=== PATIENT | female | born 1975 | race Caucasian/White ===

== ENCOUNTER 2018-11-09 11:45 | Day surgery (SDC) | payer BC ==
[2018-11-06 13:19] LABS: Absolute Lymphocytes (CBC) 2.5 K/uL (0.7-4.9); Basophils % 0.8 % (0-1.3); Hematocrit 41.1 % (36.0-45.0); Lymphocytes % 22.2 % (15.3-44.8); MPV 8.3 fL (7.6-11.3); RBC Red Blood Cell Count 4.94 M/uL (3.86-4.86)
[2018-11-06 13:37] LABS: Urine Appearance CLEAR; Urine Bilirubin NEGATIVE (NEG); Urine Blood 2+ (NEG); Urine Color YELLOW; Urine Glucose NEGATIVE (NEG); Urine Protein NEGATIVE (NEG); Urine Specific Gravity 1.025 (1.005-1.030); Urine Urobilinogen 0.2 mg/dL (0.2-1.0); Urine pH 6.5 (5.0-7.0)
[2018-11-06 13:58] LABS: Urine Microscopic Reflex ORDER UMIC
[2018-11-06 13:59] LABS: Urine Bacteria NONE SEEN /HPF (<20); Urine RBC >50 /HPF (NONE SEEN)
[2018-11-06 14:00] LABS: Calcium Oxalate Crystals- Ur PRESENT (NONE SEEN); Urine Culture Reflex Order NOT NEEDED; Urine Mucus LIGHT /HPF (NONE SEEN)
--- OUTSIDE RECORDS SUMMARY | 2018-11-09 11:47 | XMS REPORT | Clinical Summary ---
:1975 Author Organization [facility] Address [address] [place] [id number] Care Team Providers Name Role Phone Asked, No Pcp Primary Care Provider Unavailable Allergies Active Allergy Reactions Severity Noted Date Comments Penicillins 10/24/2018 Medications Medication Sig Dispensed Refills Start Date End Date Status cetirizine 10 mg cetirizine 10 mg capsule 0 Active capsule Take by oral route. clindamycin clindamycin HCl 300 mg capsule 0 Active (CLEOCIN) 300 MG Take 1 capsule 3 times a day by oral route for 5 days. capsule fluconazole 0 10/23/2018 Active (DIFLUCAN) 150 MG tablet Active Problems Problem Noted Date Loose body of right knee 10/25/2018 Overview: Added automatically from request for surgery [id number] Encounters Date Type Specialty Care Team Description 10/25/2018 Hospital Encounter Radiology Enrike Benz MD 10/25/2018 Transcribe Orders Orthopedic Surgery Enrike Benz Loose body of right MD Mikhail knee (Primary Dx) 10/24/2018 Office Visit Orthopedic Surgery Enrike Benz Effusion of right knee (Primary Dx); MD Mikhail Chronic pain of right knee after 11/08/2017 Family History Relation Name Status Comments Father Alive Mother Alive Other siblings Alive Other children Alive Social History Tobacco Use Types Packs/Day Years Used Date Former Smoker Cigarettes 1 10 03/28/1993 - 03/28/2003 Smokeless Tobacco: Never Used Alcohol Use Drinks/Week oz/Week Comments Never Sex Assigned at Date Recorded Not on file Job Start Date Occupation Industry Not on file Not on file Not on file Travel History Travel Start Travel End No recent travel history available. Last Filed Vital Signs Vital Sign Reading Time Taken Blood Pressure - - Pulse - - Temperature - - Respiratory Rate - - Oxygen Saturation - - Inhaled Oxygen Concentration - - Weight 88.9 kg (196 lb) 10/24/2018 3:22 PM CDT Height 168.9 cm (5' 6.5") 10/24/2018 3:22 PM CDT Body Mass Index 31.16 10/24/2018 3:22 PM CDT Plan of Treatment Date Type Specialty Care Team Description 01/12/2019 Hospital Encounter [place] [address] [place], [place] [id number] 01/12/2019 Surgery General Surgery Enrike Benz, Right Arthroscopy MD of the Knee with [address] [facility] Removal of Loose [address] Body & [place] Indicated [id number] Procedures [phone] 01/22/2019 Office Visit [place] [address] [place], [place] [id number] Health Maintenance Due Date Last Done Comments INFLUENZA VACCINE 10/26/2018 Procedures Procedure Name Priority Date/Time Associated Diagnosis Comments XR KNEE 4+ VW RIGHT Routine 10/24/2018 3:43 PM Chronic pain of Results for this CDT right knee procedure are in the results section. MRI LOWER EXTREMITY Routine 10/13/2018 12:17 PM Results for this EXTERNAL STUDY CDT procedure are in the results section. after 11/08/2017 Results XR Knee 4+ Vw Right (10/24/2018 3:43 PM CDT) Specimen Narrative Performed At 4 views (standing AP/PA, lateral and [employer]) of the Right knee(s) HM [facility] reveal no evidence of fracture, dislocation or any other acute or chronic osseous abnormalities. Performing Organization Address City/[facility]/Zipcode Phone Number [facility] [address] [place] [address] MRI Lower Extremity External Study (10/13/2018 12:17 PM CDT) Specimen Narrative Performed At This exam was not acquired at a [facility] facility and has not been [facility] interpreted by a [facility] Provider.The exam was imported into our imaging system for comparisons purposes. Performing Organization Address City/[facility]/Zipcode Phone Number [facility] [address] [place] [address] after 11/08/2017 Advance Directives Patient has advance care planning documents on file. For more information, please contact:Vladimir Rutherford[address] [place] [address]
[2018-11-09] MEDS ORDERED: Ringers Lactate 1,000 ML IV ONE ×2 (11:57→16:02)
[2018-11-09] MEDS ORDERED: SCOPOLAMINE HYDROBROMIDE PATCH TD ONE (11:57)
[2018-11-09] MEDS ORDERED: FENTANYL CITR 250 MCG/5 ML ONE (13:46)
[2018-11-09] MEDS ORDERED: KETOROLAC 30 MG/ML INJ ONE (13:46)
[2018-11-09] MEDS ORDERED: dexAMETHasone 10 MG/ML VIAL ONE (13:46)
[2018-11-09] MEDS ORDERED: MIDAZOLAM HCL 2 MG/2 ML INJ ONE (13:46)
[2018-11-09] MEDS ORDERED: LIDOCAINE 2% MPF 5 ML VIAL ONE (13:46)
[2018-11-09] MEDS ORDERED: ROCURONIUM 50 MG/5 ML VIAL IV ONE (13:46)
[2018-11-09] MEDS ORDERED: PROPOFOL 200 MG/20 ML VIAL IV ONE (13:46)
[2018-11-09] MEDS ORDERED: ONDANSETRON 4 MG/2 ML VIAL ONE ×2 (13:47→16:25)
[2018-11-09] MEDS ORDERED: GLYCOPYRROLATE 0.2 MG/ML SYR ONE ×3 (15:55→15:56)
[2018-11-09] MEDS ORDERED: NEOSTIGMINE 1 MG/ML -10 ML VIAL ONE (15:55)
[2018-11-09] MEDS: HYDROMORPHONE HCL 2 MG/ML inj ONE ×4 (16:27→16:50)
[2018-11-09] MEDS ORDERED: HYDROMORPHONE HCL 1 MG/ML INJ ONE (16:56)
[2018-11-09] MEDS ORDERED: IBUPROFEN 200 MG TAB PO ONE (19:17)
--- NOTE | 2018-11-10 02:43 | OP ---
Date of Procedure: 11/09/2018 Surgeon: Rhiannon Moran MD Jinriksha Driver: Lacey Schneider. Preoperative Diagnoses: Right upper and lower quadrant pain, diagnosed history of endometriosis when appendectomy was done in the recent, left ovarian cyst. Postoperative Diagnoses: Right ovarian cyst, pelvic pain, endometriosis that was extensive including an implant on the right ureteric wall very close to the vaginal cuff. Anesthesia: General endotracheal. Procedure Performed: 1.Diagnostic laparoscopy, extensive endometriosis excision. 2.Right ureterolysis. 3.Bilateral salpingectomy and right oophorectomy. Specimens: Bilateral tubes, right ovary, endometriosis of the vaginal cuff from the right periureter ic area. Estimated Blood Loss: Minimal. Findings: Endometrium with endometriosis seen at the tip of the vaginal cuff on the left side which was a very tiny implant and ablated with bipolar. Then on the right side there was endometriosis lat eral to the ureteric tunnel close to the obturator space and then along the ureteric wall close betwe en the uterosacral and the ureter. Then there were 2 implants directly on the wall of the ureter in the medial aspect growing onto the muscularis of the ureter. All the other implants were dissected free and obturators space was dissected carefully without enter ing the obturator nerve. The iliac vessels were all dissected laterally. The ureter was dissected a ll the way from below the pelvic brim to the ureteric tunnel and from the medial aspect of the peritoneum and the peritoneum was excised lateral aspect of the peritoneum and this was also exci sed. At the very distal part there was endometriosis that was excised on top of the vaginal cuff. T his was released and then went ahead with isolating the ureter at the level of the ureteric tunnel wh ere I could not take out 2 implants and the rest of the implants were all removed. The obturator jad rovascular bundle was completely intact and preserved. Patient is a 43-year-old lady with pelvic pain. She has had hysterectomy for pain and fibroids. Her hysterectomy was a robotic assisted hysterectomy for fibroids. There was no mention of endometriosi s. I have reviewed her operative report from 2012, again I could not review the pathology and there was no mention of any endometriosis in the rest of the notes. She had a right upper quadrant right lower quadrant pain for which she was investigated and then she went to a general surgeon, Dr. Cruz who did a diagnostic laparoscopy and right appendectomy for 2 weeks postop. Her pain seemed to have improved and then the pain recurred, so he referred the patie nt to me for evaluation. After reviewing the operative images, we discussed about the options of end ometriosis excision, medical treatment. Patient wanted to have relief from the pain. She definitely wanted to keep one of the ovaries. On transvaginal ultrasound, there was a 2.6 cm left ovarian cyst in 43-year-old premenopausally lady, so plan was to preserve at least 1 of the ovaries if not both a nd remove to excise the endometriosis. The endometriosis appeared to be on the lateral goodwin on both sides from the operative images that were available for review. All the risks of the surgery, including bleeding, infection, injury to the bowel, bladder, and ureter s were all reviewed, especially with endometriosis. Patient understood that. The risk of ureteric i njury could be higher. Patient was re-consented in the preop area and brought back to the OR. Her white cell count was 11.4 , then 10, but it was rechecked and she had no symptoms or signs of any infection. She has had histo ry of recurrent lower urinary tract symptoms, some of which were not diagnosed as bladder infections or acute bacterial cystitis. She has had 3 cystoscopies in the past per the patient and all of them have been negative. On repeating the white blood cell count which was 10, so decided that there is no sign of infection f or which we had to either hold off the case or give her any treatment for, so she was taken to the OR . After time-out was done, patient was placed in a supine fashion on the operating table, general anest hesia was given, she was placed in a dorsal lithotomy position using Jose stirrups. Pelvic exam was performed. Vaginal cuff appeared to be slightly nodular, but mostly unremarkable. No adnexal felicity s palpable. Abdomen, vulva, vagina, and perineum were prepped and draped in a sterile fashion. Fole y was placed in the bladder and attached with retrograde filling cysto-tubing and left to drain on th e floor. Vaginal sponge on a stick was placed for retraction at the level of the vaginal cuff and Josue was le ft in place. A 10 mm infraumbilical incision was made with a scalpel using the open laparoscopy technique. Fascia was incised and tagged with 0 Vicryl sutures. Peritoneum entered bluntly as retractor was placed, a bdomen was insufflated adequately. A 10 mm Meme was introduced, site of entry was checked, unremar jared. Patient was placed in T-Jw, 5 mm left lower quadrant and suprapubic ports were placed under direct vision and later right lower quadrant port was also placed and thorough inspection was perfor med. The right tube appeared to be slightly swollen with a darkish brownish fluid in a right ovarian cyst. The left tube appeared to be normal. The ovary was intact as well. After reviewing the loca tion of the endometriosis, plan was made to cauterize the endometriosis in the left side and then on the right side take the endometriosis out. After identifying the ureter at the pelvic brim, it was t raced down to the level of the vaginal cuff. It appeared to be pretty close to the level of the cuff after her healing, so once the implants were seen this almost nodular in extensive fashion, then the peritoneum lateral to the implants was incised with scissors and scored at least to about 3-4 cm. T hen, dissection was performed to separate it. This was almost to the obturator space. The implants were from the underlying fat. The obturator neurovascular bundle was preserved to the late ral aspect. The iliac vessels and the veins were all intact as well and safely protected. The endom etriosis was dissected from below. Then ureter was identified in the medial leaf of the broad ligame nt once the broad ligament was opened up parallel to the ureter. The ureter was dissected away from the peritoneum so that the implants can be removed and then away from the lateral aspect of the endom etriosis implants. The blood supply coming from the lateral aspect of the ureter was not disrupted a nd left intact, however, the distal most part there was an area where there was bleeding and I had to nut picker the periureteric vessels and cauterized with the bipolar LigaSure. Once this was done, I wa s concerned that there could be devascularization of the ureter where it could be better to consult u rologist to see whether the patient would need cystoscopy and stent placement in order to prevent any urinary leakage if there was necrosis of the wall of the ureter. There was another area on the dist al most aspect very close to the angle of the vaginal cuff where the endometriosis was removed with s harp dissection as well as with the monopolar, however, the injury to the ureter was not on top of th e organ itself. It was immediately lateral to it. A small implant was left on the ureter and the re st of it was removed with the help of push spread technique making windows and taken down with the lp of the LigaSure. The entire implant was excised. The 2 little implants on the distal part of the ureter were left intact. After consulting with our urologist, Dr. Carreno, who had the opinion that t his should be left alone at this time and that there was no role in leaving a ureteric stent, which w as originally my request, he upon arrival was shown the entire course of the ureter, including the me dial and lateral aspects, the areas of dissection of the endometriosis and the area of cautery with t he bipolar as well as the monopolar that was most closest to the ureter. There did not appear to be any devascularization of the ureter at this time and the ureter had good normal peristalsis. No evid ence of any urinary leakage. The patient had 250 mL of urine in the bag. So at this time, Dr. Carreno recommended that we observe and if the patient has any symptoms of urinary leak from necrosis of the ureter in about 3-7 days that we would evaluate and at that time recommended me to refer the patient over to him. The patient will be given precautions. She will be seen in 4 days on Tuesday to make s ure that she is doing well. We will follow her up closely. Once Dr. Carreno left, then thorough irrigation and suction was performed, hemostasis was secured after cauterizing the implant on the vaginal cuff, it is a very tiny implant and was taken down, bilateral salpingectomy was performed and right oophorectomy was performed, the left ovary was intact. The si te of the appendix scar completely healed. After placing the specimen in a bag, retrieved through th e umbilical port, thorough irrigation and suction of the pelvic cavity were performed and pictures we re taken. There was still a persistent implant on the distal ureter near the ureteric tunnel. It wa s pulled medial towards the vaginal cuff angle and I think patient needs referral for treatment of th is distal ureter implant. After thorough irrigation and specimen retrieval, all the trocars were rem toan under direct vision. Fascia at the umbilicus closed with 0 Vicryl tag sutures tied on both ends and simple 0 Vicryl suture in the center and 4-0 interrupted Vicryl at all incisions. Dermabond was placed. Josue and sponge on stick were removed. Instrument, needle, and sponge counts were done an d were correct at the end of the case. Patient tolerated the procedure well. She will follow up wit h me on Tuesday and then in 1 week. KEITH/ROSA Voice ID: [id number] Report ID: [id number]
--- NOTE | 2018-11-10 10:55 | CON ---
History Of Present Illness: This is a lady, who was undergoing diagnostic laparoscopic endometriosis excision. Dr. Moran called distal ureter going into the UVJ for approximately 4 or 5 cm. It looked pristine, clean on the lateral side and was concerned that ureter may becom e ischemic dusky images of the ureter blood supply and well-vascularized. I di d not stent and a picture was taken of the ureter for documentation. I recommend the best thing to do is watchful waiting. We could check an ultrasound in a month if on the right side, we could do retrograde and document exactly what the problem is. She would have to get a reim plantation at that time, but at this time, there was no reason to do a reimplantation. Her ureter wa s well intact and I did not see a reason to place a stent that would symptoms later for he r for another month or so, so decision was based to do watchful waiting. Current Medications: Melatonin, ibuprofen, Zyrtec, Zofran. Past Medical History: Anxiety, depression, ovarian cyst, fibromyalgia, high cholesterol, stomach ulc er, diverticulosis, IBS, endometriosis. Past Surgical History: Robotic-assisted TLH with fibroids, bilateral tubal ligation, arthroscopic ri ght knee surgery, cystoscopy. Family History: Grandmother has diabetes. Social History: Nonsmoker screen negative. Physical Examination: General: Patient was lying on operating room table, stable and could see via laparoscopy, the right pelvis, the ureter looked good to me in my judgment. Assessment: Status post diagnostic laparoscopic endometriosis excision involving the right ureter th at was excised. Ureter seems to be in good shape and position. There was no bleeding. No signs of ischemia. No dusky looking ureter. Plan: At this point, is just observation. If the patient has right flank pain later, we can study h er and place a stent. If she developed hydro on that side, one could further assess where the obstru ction is and most likely, she will need a right ureteral reimplantation. I do not believe any of thi s is going to happen, although they are the options for the future if she needs to be so. my judgment that I decided not to do any urological intervention at this time. I do not believe it was necessary, but it was a good idea for Dr. Moran to obtain an intraoperative consultation since . Thank you very much. KEMAL/ROSA Voice ID: [id number] Report ID: [id number]
== END 2018-11-09 20:13 | disposition home or self-care (01) ==
LOC: OR 11:45
PROVIDERS: ATTEND Obstetrics & Gynecology
PROC: 0UT74ZZ Resection of Bilateral Fallopian Tubes, Percutaneous Endoscopic Approach (ICD-10-PCS; 2018-11-09)
PROC: 0TN64ZZ Release Right Ureter, Percutaneous Endoscopic Approach (ICD-10-PCS; 2018-11-09)
PROC: 0TB64ZZ Excision of Right Ureter, Percutaneous Endoscopic Approach (ICD-10-PCS; 2018-11-09)
PROC: 0UT04ZZ Resection of Right Ovary, Percutaneous Endoscopic Approach (ICD-10-PCS; principal; 2018-11-09 13:30)
DX: N83.292 Other ovarian cyst, left side (principal); N83.201 Unspecified ovarian cyst, right side; N80.4 Endometriosis of rectovaginal septum and vagina; N80.3 Endometriosis of pelvic peritoneum; N80.8 Other endometriosis; N83.8 Other noninflammatory disorders of ovary, fallopian tube and broad ligament; N83.11 Corpus luteum cyst of right ovary; M79.7 Fibromyalgia; K58.9 Irritable bowel syndrome, unspecified; E78.00 Pure hypercholesterolemia, unspecified; F41.9 Anxiety disorder, unspecified; Z88.0 Allergy status to penicillin; Z90.710 Acquired absence of both cervix and uterus; Z83.3 Family history of diabetes mellitus; Z82.3 Family history of stroke
CPT/HCPCS: 58661; 50949; 58662; 85025; 36415; 86900; 86850; 86901; 88305; J2704; J2710; J2250; J1170; J3010; J1100; J2405 ×2; 81003; 81015

== ENCOUNTER 2019-12-13 06:00 | Day surgery (SDC) | payer BC ==
[2019-12-10 11:12] LABS: Urine Appearance TURBID; Urine Bilirubin NEGATIVE (NEG); Urine Blood 3+ (NEG); Urine Color DK YELLOW; Urine Glucose NEGATIVE (NEG); Urine Protein NEGATIVE (NEG); Urine Specific Gravity 1.025 (1.005-1.030); Urine Urobilinogen 0.2 mg/dL (0.2-1.0); Urine pH 5.5 (5.0-7.0)
[2019-12-10 11:17] LABS: Absolute Lymphocytes (CBC) 1.2 K/uL (0.7-4.9); Basophils % 0.5 % (0-1.3); Hematocrit 41.5 % (36.0-45.0); Lymphocytes % 16.1 % (15.3-44.8); MPV 8.4 fL (7.6-11.3); RBC Red Blood Cell Count 5.09 M/uL (3.86-4.86)
[2019-12-10 11:26] LABS: Urine Microscopic Reflex ORDER UMIC
[2019-12-10 11:53] LABS: Urine Amorphous Sediment 3+ /HPF (NONE SEEN); Urine Bacteria <20 /HPF (<20); Urine Culture Reflex Order NOT NEEDED
[2019-12-10 11:54] LABS: Calcium Oxalate Crystals- Ur PRESENT (NONE SEEN)
--- OUTSIDE RECORDS SUMMARY | 2019-12-13 06:06 | XMS REPORT | Clinical Summary ---
:1975 Author Organization [facility] Address [address] [place] [address] Care Team Providers Name Role Phone Asked, Pcp Primary Care Provider Unavailable Allergies Active Allergy Reactions Severity Noted Date Comments Penicillins Other (See Comments) 10/24/2018 Childho od allergy (throat swollen, hives) Medications Medication Sig Dispensed Refills Start Date End Date Status melatonin 1 mg/4 mL melatonin 0 Active drops diphenhydramine HCl Unisom SleepGels 0 Active (UNISOM SLEEPGELS ORAL) buPROPion XL 0 01/02/2019 Active (WELLBUTRIN XL) 150 MG 24 hr tablet SOOLANTRA 1 % cream 3 12/01/2018 Active cetirizine 10 mg cetirizine 10 mg capsule 0 01/09/20 Discontinued capsule Take by oral route. 19 clindamycin clindamycin HCl 300 mg capsule 0 01/09/20 Discontinued (CLEOCIN) 300 MG Take 1 capsule 3 times a day by oral route for 5 day s. 19 capsule fluconazole 0 10/23/2018 01/09/20 Discont inued (DIFLUCAN) 150 MG 19 tablet clindamycin (CLEOCIN Take 1 capsule 6 capsule 0 01/11/2019 HCL) 300 MG capsule (300 mg total) 19 by mouth 3 (three) times a day for 2 days. HYDROcodone-acetamin Take 1-2 tablets 50 tablet 0 01/11/2019 1 04/12/19 ophen (NORCO) 5-325 by mouth every 4 19 mg per (four) hours as tabletIndications: needed for acute pain moderate pain for up to 30 days .Acute Pain. Max Daily Amount: 12 tablets Active Problems Problem Noted Date Loose body of right knee 10/25/2018 Overview: Added automatically from request for beth lanza [id number] Encounters Date Type Specialty Care Team Description 01/22/2019 Office Visit Orthopedic Surgery Enrike Benz, Effus ion of right MD knee (Primary D x) 01/12/2019 Anesthesia Event General Surgery Sammie Luz, Patito Guillory FNP 01/12/2019 Surgery General Surgery Enrike Benz, Right Ar throscopy MD of the Knee wit h Removal of Loos e Body 01/12/2019 Hospital Encounter General Surgery Enrike Benz MD 01/11/2019 Orders Only Orthopedic Surgery Glenna Lizarraga MA 01/11/2019 Orders Only Orthopedic Surgery Vladislav Wolf PA 01/08/2019 Pre-Admit Testing Pre-Admission Enrike Benz, Preop testing Appointment Testing (Primary Dx) after 12/12/2018 Family History Medical History Relation Name Comments Arrhythmia Father Esophagitis Mother Relation Name Status Comments Father Alive Mother Alive Other siblings Alive Other children Alive Social History Tobacco Use Types Packs/Day Years Used Date Former Smoker Cigarettes 1 10 03/28/1993 - 0 03/28/2003 Smokeless Tobacco: Never Used Alcohol Use Drinks/Week oz/Week Comments Yes rarely Sex Assigned at Date Recorded Not on file Job Start Date Occupation Industry Not on file Not on file Not on file Travel History Travel Start Travel End No recent travel history available. Last Filed Vital Signs Vital Sign Reading Time Taken Comments Blood Pressure 110/60 01/12/2019 3:30 PM CDT Pulse 74 01/12/2019 3:30 PM CDT Temperature 36.4 C (97.5 F) 01/12/2019 3:11 PM CDT Respiratory Rate 20 01/12/2019 3:30 PM CDT Oxygen Saturation 96% 01/12/2019 3:30 PM CDT Inhaled Oxygen Concentration - - Weight 88.5 kg (195 lb) 01/08/2019 1:59 PM CDT Height 168.9 cm (5' 6.5") 01/08/2019 1:59 PM CDT Body Mass Index 31 01/08/2019 1:59 PM CDT Plan of Treatment Health Maintenance Due Date Last Done Comments CERVICAL CANCER SCREENING 08/19/1996 INFLUENZA VACCINE 11/27/2019 Procedures Procedure Name Priority Date/Time Associated Comments Diagnosis VT AN ELECTIVE Routine 01/12/2019 1:15 Results f or this SUPRAGLOTTIC AIRWAY PM CDT procedur e are in the results section. POC GLUCOSE Routine 01/12/2019 10:29 Results for this AM CDT procedure are i n the results section. after 12/12/2018 Results Airway (01/12/2019 1:15 PM CDT) Narrative Performed At Davon Arriaga CRNA 2018 1:15 PM Airway Date/Time: 01/12/2019 1:11 PM Performed by: Davon Arriaga CRN A Authorized by: Aaron Virgen MD Location: OR Urgency: Elective Difficult Airway: No Anesthesiologist: Aaron Virgen M D Resident/MARKETING BUSINESS ANALYST/AA: Davon Arriaga CRNA Preoxygenated with 100% O2: Yes C-spine Precautions Maintained Throughou t: Yes Mask Ventilation: Not attempted Final Airway Type: Supraglottic airway Final LMA: Unique LMA Size: 4 Number of Attempts at Approach: 1 POC glucose (01/12/2019 10:29 AM CDT) Pathologist Sig nature POC glucose 86 65 - 99 mg/dL [facility] Comment: [facility] Meter ID: [id number] Director Environmental: Salvador Preston Specimen Performing Organization Address City/State/Zipcode Phone Number [facility] DEPARTMENT OF PATHOLOGY [address] [facility] [address] AND GENOMIC MEDICINE [facility] [address] [facility] [address] HOSPITAL after 12/12/2018 Advance Directives For more information, please contact: [phone] Type Date Recorded Patient [employer] Explanati on Advance Directives, Living 01/08/2019 1:45 PM Will and Medical Power of [employer] Technician
[2019-12-13] MEDS ORDERED: SCOPOLAMINE HYDROBROMIDE PATCH TD ONE ×2 (06:30)
[2019-12-13] MEDS ORDERED: Ringers Lactate 1,000 ML IV ONE ×3 (06:30→11:49)
[2019-12-13] MEDS ORDERED: BUPIVACAINE 0.25% PF 30 ML VIAL ONE (06:58)
[2019-12-13] MEDS ORDERED: propofoL 200 MG/20 ML VIAL IV ONE (07:15)
[2019-12-13] MEDS ORDERED: LIDOCAINE 2% MPF 5 ML VIAL ONE (07:16)
[2019-12-13] MEDS ORDERED: FENTANYL CITR 250 MCG/5 ML ONE (07:16)
[2019-12-13] MEDS ORDERED: ROCURONIUM 50 MG/5 ML VIAL IV ONE (07:17)
[2019-12-13] MEDS ORDERED: MIDAZOLAM HCL 2 MG/2 ML INJ ONE (08:03)
[2019-12-13] MEDS ORDERED: KETOROLAC 30 MG/ML INJ ONE (08:58)
[2019-12-13] MEDS ORDERED: ONDANSETRON 4 MG/2 ML VIAL ONE ×2 (08:58→10:09)
[2019-12-13] MEDS ORDERED: dexAMETHasone 10 MG/ML VIAL ONE (08:58)
[2019-12-13] MEDS ORDERED: MORPHINE 10 MG/ML VIAL ONE (08:58)
[2019-12-13] MEDS ORDERED: NEOSTIGMINE 1 MG/ML -5 ML ONE (09:21)
[2019-12-13] MEDS ORDERED: GLYCOPYRROLATE 0.2 MG/ML SYR ONE (09:21)
[2019-12-13] MEDS: HYDROMORPHONE HCL 1 MG/ML INJ ONE ×2 (10:00→10:05)
[2019-12-13 10:04] VITALS: O2SAT 99
[2019-12-13] MEDS ORDERED: HYDROCODONE/APAP 5/325 MG TAB ONE (11:05)
[2019-12-13 12:00] VITALS: TEMP 97
[2019-12-13 12:04] VITALS: BP 103/57
[2019-12-13] MEDS ORDERED: PROMETHAZINE INJ 25 MG/ML AMP ONE (12:22)
--- NOTE | 2019-12-14 23:02 | OP ---
Date of Procedure: 12/13/2019 Surgeon: Rhiannon Moran MD Medical Director Occupational Health: Lacey Schneider. Preoperative Diagnoses: Pelvic pain, history of endometriosis, possible pelvic-abdominal mass and sw elling. Postoperative Diagnoses: Pelvic pain, endometriosis, possible ovarian cyst. Procedures Performed: Diagnostic laparoscopy, left oophorectomy, endometriosis, fulguration and exci umm. Specimens: Bladder endometriosis, left ovary. Complications: None. Drains: None. Condition: Stable. Anesthesia: General endotracheal. Estimated Blood Loss: Minimal. Findings: Endometriosis on the bladder peritoneum on the left side. Right periureteric endometriosi s in the very distal part of the ureter before the ureteric tunnel. The left ovary had a small cyst, but no other abnormal findings. Rest of the peritoneal cavity inspected closely. No other implants were seen. Indications: The patient is a 44-year-old, who had a hysterectomy. Subsequently one year ago she mejia d due to pelvic pain and right adnexal mass, she had right oophorectomy, endometriosis excision, righ t ureterolysis. She has done well for a short period of time, now with recurrent pain in right lower quadrant as well as generalized pelvic pain. On ultrasound, possible left adnexal masses noted. No other abnormalities. History of diverticulosis present. Also with significant painful bladder symp toms. However, in the presence of endometriosis without complete treatment, diagnosis francis, she is n ot appropriate given the concern that there could be an endometrioma. Discussed about all the option s including medical treatment with a GnRH agonist and antagonist. Her CA-125 was 9 due to the presen ce of that complex mass, it was 2.4 cm. After discussing all the benefits, risks, and complications of surgery and all the medical treatment options, the patient wanted to proceed with surgery. She co mpletely understood that there would be surgical menopause and may need hormonal therapy, endometrios is and pain related to endometriosis or triggered pain from the nerves could still persist despite re moval of the ovary and surgical menopause. Postsurgical hormonal therapy was also discussed with the patient after consenting the patient for diagnostic laparoscopy, removal of the left ovary, possible endometriosis ablation or fulguration or excision, left periureteric possible residual disease. All these were discussed. She was consented and taken to the OR. Description Of Procedure: No antibiotics were indicated for this procedure. She was taken back to O R and placed in supine fashion on the operating table. SCDs were started. Arms tucked by the side a fter positioning was checked. General anesthesia was given. She was placed in dorsal lithotomy posi tion using Jose stirrups after time-out was done. Abdomen, vulva, vagina, and perineum were prepped and draped in a sterile fashion. Josue was placed to drain the bladder and attached to a drainage b ag. The sponge on a stick was placed in the vagina. This area was draped. A 1 cm infraumbilical in cision was made with a scalpel using the open laparoscopy technique. Fascia was incised, tagged with 0 Vicryl sutures. Peritoneum entered sharply. S-retractors were placed. Meme introduced. Site of entry checked after insufflation adequately. No evidence of any trauma. Upper abdominal surface completely unremarkable. Liver, gallbladder, upper abdominal peritoneal surfaces without any endomet riosis seen. The patient was placed in Trendelenburg, 5 mm left lower quadrant, and suprapubic ports were placed under direct vision and after taking down the omental adhesions, the ovary was well visu alized on the pedicle of the infundibulopelvic ligament. No evidence of endometriosis here. Small c yst seen on the lateral aspect of the ovary. The ovary was picked up. LigaSure was used to take shahnaz n the IP ligament in 2 spots and then it was excised and was placed in the cul-de-sac by the rectum. The endometriotic implant on the bladder was adherent to the bladder muscle. This was picked up and excised, and cauterized at the base. The detrusor muscle was intact. Slight bipolar cautery effect to it, which was insignificant. I do not think that there was any need for closure of the area. The distal right ureter had periureteric endometriosis, difficult to dissect the peritoneum away marie use there was periurethral scar. The peritoneum could not be from the ureter. This was th e same case as before. There was a lateral cord-like structure lateral and superior to the ureter as I followed the ureter from the pelvic brim to the ureteric tunnel following its peristalsis and also its location in relation to the bifurcation of the iliacs. Possibility that there could be ectopic ureter, but there was no peristalsis seen in this area was cord-like structure could be also condensa tion of the scar tissue around, so went ahead and picked up the peritoneum. The endometriotic implan ts were more on this than just on the side of the ureter, so this was picked up. The implant was lig htly incised with the help of scissors on the surface and then fulguration was performed with the hel p of a thin tip bipolar. Both lesions were fulgurated adequately as they could not be excised. No evidence of any trauma to the ureter. Appeared to have normal peristalsis as before the fulgurati on. There was no need for cystoscopy or ureteroscopy at this time. There was adequate amount of uri ne output. The gas was desufflated. Trocars were removed under direct vision. Marcaine was injected at entry a nd exit of all the port sites. Meme was taken out after closed desufflation of the CO2 from the pe ritoneal cavity and fascia closed with the help of the tagged 0 Vicryl sutures, tied to each other. Incision was closed with the help of interrupted 4-0 Vicryl sutures. Josue was removed. Vaginal spo nge was removed. Instrument, needle, and sponge counts were correct at the end of the case. The pat ient tolerated the procedure well and she was recovered from anesthesia and taken to PACU in stable c ondition. Scopolamine patch was placed prior to the procedure and she was recovered in the Postopera tive Anesthesia Unit without any problems. KEITH/ROSA Voice ID: [id number] Report ID: [id number]
== END 2019-12-13 12:30 | disposition home or self-care (01) ==
LOC: OR 06:00
PROVIDERS: ATTEND Obstetrics & Gynecology
PROC: 0TBB4ZZ Excision of Bladder, Percutaneous Endoscopic Approach (ICD-10-PCS; 2019-12-13)
PROC: 0DBW4ZZ Excision of Peritoneum, Percutaneous Endoscopic Approach (ICD-10-PCS; 2019-12-13)
PROC: 0UT14ZZ Resection of Left Ovary, Percutaneous Endoscopic Approach (ICD-10-PCS; principal; 2019-12-13 07:00)
DX: R10.2 Pelvic and perineal pain (principal); N80.9 Endometriosis, unspecified; N83.202 Unspecified ovarian cyst, left side; Z20.828 Contact with and (suspected) exposure to other viral communicable diseases; F41.8 Other specified anxiety disorders
CPT/HCPCS: 53899; 85025; 36415; 86900; 86850; 86901; 88305; 83001; 58662; U0002; J2704; J2550; J2250; J3010; J1100; J1170; J2710; J7120 ×3; J2405 ×2; 81003; 81015

== ENCOUNTER 2020-08-08 07:29 | Emergency (ER) | payer BC ==
--- OUTSIDE RECORDS SUMMARY | 2020-08-08 07:33 | XMS REPORT | Continuity of Care Document ---
:1975 Author Organization [facility] t Address [address] [place] [address] Care Team Providers Name Role Phone Asked, Pcp Primary Care Physician Unavailable Luisa MAKI Attending Clinician Doctor Unassigned, Name Attending Clinician Unavailable Problems Condition Condition Condition Status Onset Resolution Last Treating Co mments Source Name Details Category Date Date Treatment Clinician Date Loose body Loose body Disease Active Overview : Gilbert of right of right 10-25 [place] [facility] knee knee 00:00: g of this st 00 note might be different from the original. Added automatic ally from request for surgery [id number] Allergies, Adverse Reactions, Alerts Allergy Allergy Status Severity Reaction(s) Onset Inactive Treating Comm ents Source Name Type Date Date Clinician Penicill Propensi Active Other (See Childhood Gilbert ins ty to Comments) 10-24 allergy Method i adverse 00:00: (throat st reaction 00 swollen, s to hives) drug Family History Family Member Diagnosis Comments Start Date Stop Date Source Natural father Arrhythmia [facility] Natural mother Esophagitis Vladimir Walker [facility]ist Social History Social Habit Start Date Stop Date Quantity Comments Source Cigarette 2019-01-22 2019-01-22 [facility] pack-years 00:00:00 00:00:00 Tobacco use and 2019-01-22 2019-01-22 Never used Vladimir Walker [facility] exposure 00:00:00 00:00:00 Alcohol intake 2019-01-22 2019-01-22 Current drinker [place] [facility] 00:00:00 00:00:00 of alcohol (finding) Cigarettes smoked 2019-01-22 2019-01-22 [facility] current (pack per 00:00:00 00:00:00 day) - Reported Alcohol Comment 2019-01-08 2019-01-08 rarely Gilbert Denise ethodist 00:00:00 00:00:00 History of tobacco 1993-03-28 2003-03-28 Current smoker Shon jackson [facility] use 00:00:00 00:00:00 Sex Ass[birth year] [facility] ethodist 00:00:00 00:00:00 Smoking Status Start Date Stop Date Source Former smoker 2019-01-22 00:00:00 2019-01-22 00:00:00 [place] [facility] Medications Ordered Filled Start Stop Current Ordering Indication Dosage Frequency Signature Comments Components Source Medication Medication Date Date Medication? Clinician (SIG) Name Name melatonin 2018-03 Yes melatonin [place] mg/4 mL 0-18 [facility] drops 15:54: st 13 diphenhydra 2018-03 Yes Unisom [place] HCl 0-18 [facility] i (UNISOM 15:54: st SLEEPGELS 13 ORAL) buPROPion 2018-03 Yes [place] XL 0-08 [facility] (WELLBUTRIN 00:00: st XL) 150 MG 00 24 hr tablet SOOLANTRA Yes [place] % cream 9-06 [facility] 00:00: st 00 Procedures This patient has no known procedures. Plan of Care Planned Activity Planned Date Details Comments Source Future Scheduled 2020-10-26 INFLUENZA VACCINE [place] [facility] Test 00:00:00 [code = INFLUENZA VACCINE] Future Scheduled 1996-08-19 Screening for [facility] thodist Test 00:00:00 malignant neoplasm of cervix (procedure) [code = 753341509] Future Scheduled 1993-08-19 Hepatitis C [place] [facility] Test 00:00:00 screening (procedure) [code = 747376491] Future Scheduled 1991 COVID-19 VACCINE (1) Gwen wardavril [facility] Test 00:00:00 [code = COVID-19 VACCINE (1)] Encounters Start End Encounter Admission Attending Care Care Encounter Source Date/Time Date/Time Type Type Clinicians Facility Department ID 2020-03-26 2020-03-26 [facility] [id number] 18:15:00 23:59:00 Encounter Rhiannon Melton [id number] [place] [id number] [place] [id number] 2020-03-26 2020-03-26 Orders Doctor CARRIE [id number] 00:00:00 00:00:00 Only Unassigned, MACIEJ [id number] [place] [facility] [id number] Results This patient has no known results.
[2020-08-08 08:16] LABS: Absolute Lymphocytes (CBC) 1.8 K/uL (0.7-4.9); Basophils % 0.6 % (0-1.3); Hematocrit 45.3 % (36.0-45.0); Lymphocytes % 12.6 % (15.3-44.8); MPV 7.6 fL (7.6-11.3); RBC Red Blood Cell Count 5.46 M/uL (3.86-4.86)
--- NOTE | 2020-08-08 08:23 | RAD REPORT ---
EXAM DESCRIPTION: CT - Head Brain Wo Cont - 08/08/2020 8:15 am CLINICAL HISTORY: Dizziness;Headache;Fever Headache, drowsiness COMPARISON: No comparisons TECHNIQUE: All CT scans are performed using dose optimization technique as appropriate and may inclu de automated exposure control or mA/KV adjustment according to patient size. FINDINGS: No intracranial hemorrhage, hydrocephalus or extra-axial fluid collection.No areas of brai n edema or evidence of midline shift. The paranasal sinuses and mastoids are clear. The calvarium is intact. IMPRESSION: No acute intracranial abnormality.
[2020-08-08] MEDS ORDERED: MORPHINE 2 MG/ML SYR ONE ×2 (08:26→09:10)
[2020-08-08] MEDS ORDERED: NA CHLORIDE 0.9% 1,000 ML ONE ×2 (08:26→09:33)
[2020-08-08] MEDS ORDERED: ONDANSETRON 4 MG/2 ML VIAL ONE (08:26)
[2020-08-08 08:29] LABS: Protime INR 0.88
[2020-08-08 08:44] LABS: ALT/SGPT 29 U/L (12-78); AST/SGOT 10 U/L (15-37); Albumin 3.8 g/dL (3.4-5.0); Alkaline Phosphatase 77 U/L (45-117); BUN Blood Urea Nitrogen 15 mg/dL (7-18); Bicarbonate 28 mmol/L (21-32); Bilirubin Direct 0.1 mg/dL (0-0.2); Bilirubin Total 0.5 mg/dL (0.2-1.0); Glucose Level 88 mg/dL (74-106); Magnesium 2.6 mg/dL (1.8-2.4); NT PRO-BNP 223 pg/mL (<125); Potassium 3.4 mmol/L (3.5-5.1); Protein, Total 7.1 g/dL (6.4-8.2); Sodium Level 140 mmol/L (136-145); Troponin (Emerg Dept Use Only) < 0.02 ng/mL (0.0-0.045)
--- NOTE | 2020-08-08 08:55 | RAD REPORT ---
EXAM DESCRIPTION: RAD - Chest Single View - 08/08/2020 8:49 am CLINICAL HISTORY: COUGH Chest pain. COMPARISON: Chest Pa And Lat (2 Views) dated 02/28/2020; Chest Pa And Lat (2 Views) dated 12/14/2019; Chest Pa And Lat (2 Views) dated 05/02/2019; Chest Pa And Lat (2 Views) dated 09/26/2018 FINDINGS: Portable technique limits examination quality. The lungs are grossly clear. The heart is normal in size. No displaced fractures. IMPRESSION: No acute intrathoracic process suspected.
[2020-08-08] MEDS ORDERED: CEFTRIAXONE/SWI 1gm 1 GM/10 ML SYR ONE (09:10)
[2020-08-08 09:31] LABS: SARS-COV-2 RT PCR NEGATIVE (NEGATIVE)
[2020-08-08 09:31] LABS: Urine Blood 1+ (Negative); Urine Glucose Negative (Negative); Urine Protein Negative (Negative); Urine pH 5.5 (5.0-7.0)
[2020-08-08] MEDS ORDERED: POTASSIUM 25 MEQ EFFERV TAB ONE (09:33)
[2020-08-08] MEDS ORDERED: METHYLPREDNISOLONE 125 MG INJ ONE (10:31)
--- NOTE | 2020-08-08 10:57 | RAD REPORT ---
EXAM DESCRIPTION: MRI - Brain Wo Cont - 08/08/2020 10:31 am CLINICAL HISTORY: Dizziness;Headache Headache, drowsiness COMPARISON: Head Brain Wo Cont dated 08/08/2020 TECHNIQUE: Multi-sequence, multiplanar MR imaging of the brain was performed without contrast. FINDINGS: No intracranial hemorrhage, hydrocephalus or extra-axial fluid collections. No edema or sh ift of midline structures. No findings to suspect brain mass. DWI is negative for acute CVA. Midline structures are normally formed. Mastoid air cells and paranasal sinuses are clear. IMPRESSION: No acute or concerning intracranial abnormalities.
--- NOTE | 2020-08-08 11:09 | EDPHYS ---
Physician Documentation [facility] Name: Sole Mojica Age: 44 yrs Sex: Female : 1975 Arrival Date: 08/08/2020 Time: 07:32 Bed 20 Private MD: ED Physician Deshawn Garcia HPI: 08/08 08:06 This 44 yrs old Female presents to ER via Ambulatory with complaints of ford Fever, Dizziness, Headache. 08:06 The patient reports fever, that was measured at 103 degrees Fahrenheit. Onset: The ford symptoms/episode began/occurred 2 day(s) ago. Modifying factors: there are no obvious modifying factors. Associated signs and symptoms: Pertinent positives: headache, myalgias, nausea. Severity of symptoms: At their worst the symptoms were moderate in the emergency department the symptoms are unchanged. The patient has not experienced similar symptoms in the past. EMBEDDED PROCESSOR: 11:23 LMP N/A - Hysterectomy ll1 Historical: - Allergies: 07:57 PENICILLINS; ll1 - PMHx: 07:57 IBS; Endometrosis; trigeminal neuralgia; ll1 - PSHx: 07:57 Hysterectomy; ll1 - Immunization history:: Adult Immunizations up to date. - Social history:: Smoking status: Patient denies any tobacco usage or history of. ROS: 08:08 Eyes: Negative for injury, pain, redness, and discharge, ENT: Negative for injury, ford pain, and discharge, Neck: Negative for injury, pain, and swelling, Abdomen/GI: Negative for abdominal pain, nausea, vomiting, diarrhea, and constipation, Back: Negative for injury and pain, : Negative for injury, bleeding, discharge, and swelling, MS/Extremity: Negative for injury and deformity, Skin: Negative for injury, rash, and discoloration, Psych: Negative for depression, anxiety, suicide ideation, homicidal ideation, and hallucinations, Allergy/Immunology: Negative for hives, rash, and allergies, Endocrine: Negative for neck swelling, polydipsia, polyuria, polyphagia, and marked weight changes, Hematologic/Lymphatic: Negative for swollen nodes, abnormal bleeding, and unusual bruising. 08:08 Constitutional: Positive for body aches, chills, fever, malaise. 08:08 Abdomen/GI: Positive for nausea and vomiting, abdominal cramps. 08:08 Neuro: Positive for headache, weakness. Exam: 08:08 Constitutional: This is a well developed, well nourished patient who is awake, alert, ford and in no acute distress. Head/Face: Normocephalic, atraumatic. Eyes: Pupils equal round and reactive to light, extra-ocular motions intact. Lids and lashes normal. Conjunctiva and sclera are non-icteric and not injected. Cornea within normal limits. Periorbital areas with no swelling, redness, or edema. ENT: Nares patent. No nasal discharge, no septal abnormalities noted. Tympanic membranes are normal and external auditory canals are clear. Oropharynx with no redness, swelling, or masses, exudates, or evidence of obstruction, uvula midline. Mucous membranes moist. Neck: Trachea midline, no thyromegaly or masses palpated, and no cervical lymphadenopathy. Supple, full range of motion without nuchal rigidity, or vertebral point tenderness. No Meningismus. Chest/axilla: Normal chest wall appearance and motion. Nontender with no deformity. No lesions are appreciated. Respiratory: Lungs have equal breath sounds bilaterally, clear to auscultation and percussion. No rales, rhonchi or wheezes noted. No increased work of breathing, no retractions or nasal flaring. Back: No spinal tenderness. No costovertebral tenderness. Full range of motion. Female : Normal external genitalia. Skin: Warm, dry with normal turgor. Normal color with no rashes, no lesions, and no evidence of cellulitis. MS/ Extremity: Pulses equal, no cyanosis. Neurovascular intact. Full, normal range of motion. Psych: Awake, alert, with orientation to person, place and time. Behavior, mood, and affect are within normal limits. 08:08 Neck: External neck: is normal, ROM/movement: pain, is not appreciated, Meningeal signs: are not present, Kernig's sign is negative, Brudzinski's sign is negative, nuchal rigidity, is not appreciated. 08:08 Cardiovascular: Rate: tachycardic, Rhythm: regular, Pulses: Pulses are 4+ in bilateral radial, brachial, femoral, popliteal, posterior tibial and and dorsalis pedis arteries.. Heart sounds: normal, Edema: is not appreciated, JVD: is not appreciated. 08:38 ECG was reviewed by the Attending Physician. [facility] Vital Signs: 07:39 BP 139 / 87; Pulse 122; Resp 18 S; Temp 98.6(TE); Pulse Ox 99% on R/A; jd3 08:37 Pulse 90; Resp 17; Pulse Ox 99% ; ll1 09:20 BP 117 / 58; Pulse 90; Resp 16; Pulse Ox 100% on R/A; ll1 11:20 BP 122 / 72; Pulse 89; Resp 17; Pulse Ox 100% ; ll1 [place] Coma Score: 08:10 Eye Response: spontaneous(4). Verbal Response: oriented(5). Motor Response: obeys [facility] commands(6). Total: 15. MDM: 07:58 Patient medically screened. ford 08:10 Differential diagnosis: cluster headache, viral Infection, bacterial infection, URI, ford pneumonia UTI, gastroenteritis, meningitis, hypoglycemia, hyponatremia, migraine, tension headache, uremia. Differential Diagnosis sepsis. Data reviewed: vital signs, nurses notes, lab test result(s), EKG, radiologic studies, CT scan, plain films. Data interpreted: cafeteria monitor: rate is 122 beats/min, rhythm is regular, Pulse oximetry: on room air is 99 %. Test interpretation: by ED physician or midlevel provider: ECG, plain radiologic studies. Counseling: I had a detailed discussion with the patient and/or guardian regarding: the historical points, exam findings, and any diagnostic results supporting the discharge/admit diagnosis, lab results, radiology results, the need for outpatient follow up. Medical screen evaluation completed. [facility] emergency medical condition absent. Medical screen evaluation completed. [facility] emergency medical condition absent. 08/08 08:02 Order name: Basic Metabolic Panel 08/08 08:02 Order name: CBC with Diff 08/08 08:02 Order name: LFT's 08/08 08:02 Order name: Magnesium 08/08 08:02 Order name: NT PRO-BNP 08/08 08:02 Order name: PT-INR [facility] 08/08 08:02 Order name: Troponin (emerg Dept Use Only) 08/08 08:02 Order name: Blood Culture Adult (2) 08/08 08:02 Order name: Urine Culture [facility] 08/08 08:02 Order name: Strep; Complete Time: 09:37 [facility] 08/08 08:03 Order name: Basic Metabolic Panel; Complete Time: 09:07 EDMS 08/08 08:03 Order name: CBC with Automated Diff; Complete Time: 09:07 EDMS 08/08 08:02 Order name: XRAY Chest (1 view); Complete Time: 09:07 [facility] 08/08 08:02 Order name: CT Head Brain wo Cont; Complete Time: 09:07 [facility] 08/08 08:03 Order name: Liver (Hepatic) Function; Complete Time: 09:07 EDMS 08/08 08:03 Order name: Magnesium; Complete Time: 09:07 EDMS 08/08 08:03 Order name: NT PRO-BNP; Complete Time: 09:07 EDMS 08/08 08:03 Order name: Protime (+INR); Complete Time: 09:07 EDMS 08/08 08:03 Order name: Troponin (Emerg Dept Use Only); Complete Time: 09:07 EDMS 08/08 08:13 Order name: Lactate [facility] 08/08 08:13 Order name: Lipase [facility] 08/08 08:13 Order name: Lactate; Complete Time: 09:07 [facility]RI 08/08 08:13 Order name: Lipase; Complete Time: 09:07 [facility] 08/08 09:10 Order name: Throat Culture [facility] 08/08 09:31 Order name: Urine Dipstick-Ancillary; Complete Time: 09:37 [facility]RI 08/08 09:31 Order name: COVID-19/FLU A+B; Complete Time: 09:37 EDMS 08/08 09:37 Order name: Urine --Ancillary (enter results); Complete Time: 11:07 08/08 08:02 Order name: EKG; Complete Time: 08:03 [facility] 08/08 08:02 Order name: Cardiac monitoring; Complete Time: 09:07 [facility] 08/08 08:02 Order name: EKG - Nurse/Tech; Complete Time: 09:07 ford 08/08 08:02 Order name: IV Saline Lock; Complete Time: 08:02 [facility] 08/08 08:02 Order name: Labs collected and sent; Complete Time: 08:02 [facility] 08/08 08:02 Order name: O2 Per Protocol; Complete Time: 08:03 ford 08/08 08:02 Order name: O2 Sat Monitoring; Complete Time: 08:02 [facility] 08/08 10:19 Order name: Brain Wo Cont EDMS EC:38 Rate is 91 beats/min. Rhythm is regular. QRS [place] is Normal. DC interval is normal. QRS ford interval is normal. QT interval is normal. No Q waves. T waves are Normal. No ST changes noted. Clinical impression: Normal ECG and No evidence of ischemia. Interpreted by me. Reviewed by me. Administered Medications: 08:10 Drug: Zofran (Ondansetron) 4 mg Route: IVP; Site: right antecubital; 1 09:21 Follow up: Response: No adverse reaction; RASS: Alert and Calm (0) [facility] 08:11 Drug: morphine 2 mg Route: IVP; Site: right antecubital; 1 08:20 Drug: NS 0.9% 1000 ml Route: IV; Rate: 1 bolus; Site: right antecubital; 1 09:20 Follow up: Response: No adverse reaction; IV Status: Completed infusion; IV Intake: ll1 1000ml 08:54 Drug: morphine 2 mg Route: IVP; Site: right antecubital; 1 09:21 Follow up: Response: No adverse reaction; Pain is decreased; RASS: Alert and Calm (0) [facility] 08:54 Drug: Rocephin (cefTRIAXone) 1 grams Route: IV; Rate: per protocol; Site: right ll1 antecubital; 09:21 Follow up: Response: No adverse reaction; IV Status: Completed infusion; IV Intake: [id number] 09:19 Drug: NS 0.9% 1000 ml Route: IV; Rate: 1 bolus; Site: right antecubital; 1 10:45 Follow up: Response: No adverse reaction; RASS: Alert and Calm (0); IV Status: ll1 Completed infusion; IV Intake: 1000ml 09:19 Drug: Potassium Effervescent Tablet 25 mEq Route: PO; ll1 10:45 Follow up: Response: No adverse reaction; RASS: Alert and Calm (0) 1 10:45 Drug: SOLU-Medrol (methylPrednisoLONE) 125 mg Route: IVP; Site: right antecubital; 1 11:24 Follow up: Response: No adverse reaction; RASS: Alert and Calm (0) [facility] Disposition: 08/08/20 11:08 Discharged to Home. Impression: Fever, unspecified, Headache, Weakness, Hypokalemia. - Condition is Stable. - Discharge Instructions: Potassium Content of Foods, Fever, Adult, General Headache Without Cause, Weakness, Fatigue, Weakness, Wufx-co-Dgdt, General Headache Without Cause, Cgyw-xd-Zdwm, Fever, Adult, Nhvk-us-Wwsm, Hypokalemia. - Prescriptions for Pepcid 20 mg Oral Tablet - take 1 tablet by ORAL route every 12 hours for 10 days; 20 tablet. Zofran 4 mg Oral Tablet - take 1 tablet by ORAL route every 12 hours As needed; 20 tablet. Medrol (Sam) 4 mg Oral Tablets, Dose Pack - take 1 tablet by ORAL route as directed - follow package instructions; 1 packet. - Medication Reconciliation Form, Thank You Letter, Antibiotic Education, Prescription Opioid Use, Work release form form. - Follow up: Private Physician; When: 2 - 3 days; Reason: Recheck today's complaints, Continuance of care, Re-evaluation by your physician. Follow up: Jose Maria Roldan; When: 2 - 3 days; Reason: Recheck today's complaints, Re-evaluation by your physician. - Problem is new. - Symptoms have improved. Signatures: Dispatcher [employer] [facility] Deshawn Garcia MD MD cha Lewis, Lynsay RN RN ll1 Corrections: (The following items were deleted from the chart) 08:36 08:03 CORONAVIRUS+MR.LAB.BRZ ordered. [facility] 08:38 08:03 Influenza Screen (A \T\ B)+BA.LAB.BRZ ordered. [facility] 10:19 09:38 MR STROKE PROTOCOL+MRI.RAD.BRZ ordered. [facility] 11:30 11:08 08/08/2020 11:08 Discharged to Home. Impression: Fever, unspecified; Headache; ll1 Weakness; Hypokalemia. Condition is Stable. Discharge Instructions: Potassium Content of Foods, Fever, Adult, General Headache Without Cause, Weakness, Fatigue, Weakness, Ehab-dj-Ojbu, General Headache Without Cause, Diak-bz-Xuvv, Fever, Adult, Rfaw-ye-Zhwr, Hypokalemia. Prescriptions for Pepcid 20 mg Oral Tablet - take 1 tablet by ORAL route every 12 hours for 10 days; 20 tablet, Zofran 4 mg Oral Tablet - take 1 tablet by ORAL route every 12 hours As needed; 20 tablet, Medrol (Sam) 4 mg Oral Tablets, Dose Pack - take 1 tablet by ORAL route as directed - follow package instructions; 1 packet. and Forms are Medication Reconciliation Form, Thank You Letter, Antibiotic Education, Prescription Opioid Use. Follow up: Private Physician; When: 2 - 3 days; Reason: Recheck today's complaints, Continuance of care, Re-evaluation by your physician. Follow up: Jose Maria Roldan; When: 2 - 3 days; Reason: Recheck today's complaints, Re-evaluation by your physician. Problem is new. Symptoms have improved. ford
--- NOTE | 2020-08-08 11:09 | ER ---
Nurse's Notes [facility] Name: Sole Mojica Age: 44 yrs Sex: Female : 1975 Arrival Date: 08/08/2020 Time: 07:32 Bed 20 Private MD: Diagnosis: Fever, unspecified;Headache;Weakness;Hypokalemia Presentation: 08/08 07:34 Chief complaint: Patient states: "I have been on prednisone for a a long time now and I jd3 am trying to cut back, but i think that has caused a problem. I am having stomach pain, diarrhea, and my feet are cramping and wanting to curl. I can't lay down or get comfortable. I am also having hot flashes as well as running fevers. I took Ibuprofen to help with that. I also have been noticing this rash that I am having on my arms and some dizziness. all of this has been going on for days.". Coronavirus screen: At this time, the client does not indicate any symptoms associated with coronavirus-19. Ebola Screen: Patient negative for fever greater than or equal to 101.5 degrees Fahrenheit, and additional compatible Ebola Virus Disease symptoms. Initial Sepsis Screen: Does the patient meet any 2 criteria? No. Patient's initial sepsis screen is negative. Does the patient have a suspected source of infection? No. Patient's initial sepsis screen is negative. Risk Assessment: Do you want to hurt yourself or someone else? Patient reports no desire to harm self or others. Onset of symptoms was August 06, 2020. 07:34 Method Of Arrival: Ambulatory jd3 07:34 Acuity: PRASHANTH 3 jd3 Triage Assessment: 11:23 Headache History: The patient has had previous headaches and this one is similar to ll1 previous episodes. General: Appears in no apparent distress. Pain: Pain began 2-3 days ago. Also complains of nausea. Pain: Denies pain. LOADER: 11:23 LMP N/A - Hysterectomy ll1 Historical: - Allergies: 07:57 PENICILLINS; ll1 - PMHx: 07:57 IBS; Endometrosis; trigeminal neuralgia; ll1 - PSHx: 07:57 Hysterectomy; ll1 - Immunization history:: Adult Immunizations up to date. - Social history:: Smoking status: Patient denies any tobacco usage or history of. Screenin:58 Abuse screen: Denies threats or abuse. Nutritional screening: No deficits noted. ll1 Tuberculosis screening: No symptoms or risk factors identified. Fall Risk IV access (20 points). Total Painting Fall Scale indicates No Risk (0-24 pts). Assessment: 08:00 General: Appears uncomfortable, Behavior is calm, cooperative, appropriate for age. ll1 Pain: Complains of pain in back/head/abd Pain currently is 8 out of 10 on a pain scale. Quality of pain is described as aching. Neuro: Level of Consciousness is awake, alert, obeys commands, Oriented to person, place, time, situation, Appropriate for age [employer] are equal bilaterally Moves all extremities. Full function Gait is steady, Speech is normal, Reports dizziness, headache. Cardiovascular: Heart tones S1 S2 Capillary refill < 3 seconds Clubbing of nail beds is absent JVD is absent Patient's skin is warm and dry. Rhythm is regular. Respiratory: No deficits noted. GI: Abdomen is flat, Bowel sounds present X 4 quads. Reports diarrhea, nausea, vomiting. Musculoskeletal: Circulation, motion, and sensation intact. Capillary refill < 3 seconds, Range of motion: Reports pain in back, head, abd. 09:00 Reassessment: No changes from previously documented assessment. Patient and/or family ll1 updated on plan of care and expected duration. Pain level reassessed. 10:00 Reassessment: No changes from previously documented assessment. Patient and/or family ll1 updated on plan of care and expected duration. Pain level reassessed. 11:00 Reassessment: No changes from previously documented assessment. Patient and/or family ll1 updated on plan of care and expected duration. Pain level reassessed. Vital Signs: 07:39 BP 139 / 87; Pulse 122; Resp 18 S; Temp 98.6(TE); Pulse Ox 99% on R/A; jd3 08:37 Pulse 90; Resp 17; Pulse Ox 99% ; ll1 09:20 BP 117 / 58; Pulse 90; Resp 16; Pulse Ox 100% on R/A; ll1 11:20 BP 122 / 72; Pulse 89; Resp 17; Pulse Ox 100% ; ll1 [place] Coma Score: 08:10 Eye Response: spontaneous(4). Verbal Response: oriented(5). Motor Response: obeys ford commands(6). Total: 15. ED Course: 07:32 Patient arrived in ED. ds1 07:33 Deshawn Garcia MD is Attending Physician. ford 07:39 Triage completed. jd3 07:39 Arm band placed on. jd3 07:45 Inserted saline lock: 20 gauge in right antecubital area, using aseptic technique. ll1 Blood collected. 07:56 Keith Alba, RN is Primary Nurse. ll1 07:58 Patient has correct armband on for positive identification. Bed in low position. Call ll1 light in reach. Side rails up X 1. Pulse ox on. NIBP on. 08:16 CT Head Brain wo Cont In Process Unspecified. EDMS 08:49 XRAY Chest (1 view) In Process Unspecified. EDMS 10:21 Brain Wo Cont In Process Unspecified. EDMS 11:08 Jose Maria Roldan MD is Referral Physician. ford 11:22 No provider procedures requiring assistance completed. IV discontinued, intact, ll1 bleeding controlled, No redness/swelling at site. Pressure dressing applied. Administered Medications: 08:10 Drug: Zofran (Ondansetron) 4 mg Route: IVP; Site: right antecubital; ll1 09:21 Follow up: Response: No adverse reaction; RASS: Alert and Calm (0) ll1 08:11 Drug: morphine 2 mg Route: IVP; Site: right antecubital; ll1 08:20 Drug: NS 0.9% 1000 ml Route: IV; Rate: 1 bolus; Site: right antecubital; ll1 09:20 Follow up: Response: No adverse reaction; IV Status: Completed infusion; IV Intake: ll1 1000ml 08:54 Drug: morphine 2 mg Route: IVP; Site: right antecubital; ll1 09:21 Follow up: Response: No adverse reaction; Pain is decreased; RASS: Alert and Calm (0) ll1 08:54 Drug: Rocephin (cefTRIAXone) 1 grams Route: IV; Rate: per protocol; Site: right ll1 antecubital; 09:21 Follow up: Response: No adverse reaction; IV Status: Completed infusion; IV Intake: [id number] 09:19 Drug: NS 0.9% 1000 ml Route: IV; Rate: 1 bolus; Site: right antecubital; ll1 10:45 Follow up: Response: No adverse reaction; RASS: Alert and Calm (0); IV Status: ll1 Completed infusion; IV Intake: 1000ml 09:19 Drug: Potassium Effervescent Tablet 25 mEq Route: PO; ll1 10:45 Follow up: Response: No adverse reaction; RASS: Alert and Calm (0) ll1 10:45 Drug: SOLU-Medrol (methylPrednisoLONE) 125 mg Route: IVP; Site: right antecubital; ll1 11:24 Follow up: Response: No adverse reaction; RASS: Alert and Calm (0) ll1 Intake: 09:20 IV: 1000ml; Total: 1000ml. ll1 09:21 IV: 10ml; Total: 1010ml. ll1 10:45 IV: 1000ml; Total: 2010ml. 1 Outcome: 11:08 Discharge ordered by . ford 11:23 Discharged to home ambulatory. 1 11:23 Condition: stable 11:23 Discharge instructions given to patient, Instructed on discharge instructions, follow up and referral plans. medication usage, Demonstrated understanding of instructions, follow-up care, medications, Prescriptions given X 3. 11:30 Patient left the ED. 1 Signatures: Dispatcher [employer] EDDeshawn Traore MD MD cha Sanford, Demi ds1 Chan Lam RN RN Keith Márquez RN RN ll1
[2020-08-08 11:38] VITALS: TEMP 98.6
[2020-08-08 11:42] VITALS: O2SAT 100
[2020-08-08 11:43] VITALS: BP 122/72
== END 2020-08-08 11:30 | disposition home or self-care (01) ==
LOC: ER 07:29
DX: R50.9 Fever, unspecified (principal); R51.9 Headache, unspecified; R53.1 Weakness; E87.6 Hypokalemia; Z20.822 Contact with and (suspected) exposure to COVID-19; K58.9 Irritable bowel syndrome, unspecified
CPT/HCPCS: 96365; 96361; 93005; 87040 ×2; 87070; 87088; 85025; 87086; 80048; 36415; 83735; 81025; 85610; 80076; 87081; 83605; 81003; 84484; 83690; 83880; 0240U; 70450; 71045; 70551; 96375; 99284; J2270 ×2; J0696; J7030 ×2; J2930; J2405

== ENCOUNTER 2021-03-18 09:23 | Day surgery (SDC) | payer BC ==
[2021-03-17 14:02] LABS: Absolute Lymphocytes (CBC) 2.1 K/uL (0.7-4.9); Basophils % 1.2 % (0-1.3); Hematocrit 41.3 % (36.0-45.0); Lymphocytes % 24.8 % (15.3-44.8); MPV 7.7 fL (7.6-11.3); RBC Red Blood Cell Count 5.12 M/uL (3.86-4.86)
[2021-03-17 14:15] LABS: Potassium 3.8 mmol/L (3.5-5.1)
--- NOTE | 2021-03-17 14:23 | RAD REPORT ---
EXAM DESCRIPTION: RAD - Chest Pa And Lat (2 Views) - 03/17/2021 2:16 pm CLINICAL HISTORY: PREOP COMPARISON: Chest Pa And Lat (2 Views) dated 08/21/2020; Chest Single View dated 08/08/2020; Chest Pa And Lat (2 Views) dated 02/28/2020; Chest Pa And Lat (2 Views) dated 12/14/2019 FINDINGS: Lines: None. Lungs: No evidence of edema or pneumonia. Pleural: No significant pleural effusions or pneumothorax. Cardiac: The heart size is within normal limits. Bones: No acute fractures. Other: IMPRESSION: No acute cardiopulmonary disease.
[2021-03-18] MEDS ORDERED: Ringers Lactate 1,000 ML IV ONE (09:38)
[2021-03-18] MEDS ORDERED: propofoL 200 MG/20 ML VIAL IV ONE (12:22)
[2021-03-18] MEDS ORDERED: MIDAZOLAM HCL 2 MG/2 ML INJ ONE (12:23)
[2021-03-18] MEDS ORDERED: FENTANYL CITR 100 MCG/2 ML ONE ×2 (12:23→14:07)
[2021-03-18] MEDS ORDERED: ONDANSETRON 4 MG/2 ML VIAL ONE ×2 (12:24→15:12)
[2021-03-18] MEDS ORDERED: LIDOCAINE 2% MPF 5 ML VIAL ONE (12:24)
[2021-03-18] MEDS ORDERED: BUPIVACAINE 0.5% PF 10 ML VIAL ONE (12:42)
[2021-03-18] MEDS: CIPROFLOXACIN 400mg IV 400 MG/200 ML BAG IV ONE ×2 (14:20→14:23)
[2021-03-18] MEDS ORDERED: dexAMETHasone 10 MG/ML VIAL ONE (14:46)
--- NOTE | 2021-03-18 14:54 | P.BOP ---
Preoperative diagnosis: infected right lower back subcutaneous mass Postoperative diagnosis: same Primary procedure: Excisional biopsy of infected right lower back subcutaneous mass 3x3cm Estimated blood loss: <10cc Specimen: mass and abscess culture Findings: mass and abscess Anesthesia: General Complications: None Transferred to: Recovery Room Condition: Good
[2021-03-18] MEDS: HYDROMORPHONE HCL 1 MG/ML INJ ONE ×2 (15:21→15:32)
[2021-03-18] MEDS ORDERED: PROMETHAZINE INJ 25 MG/ML AMP ONE (15:39)
[2021-03-18] MEDS ORDERED: HYDROMORPHONE HCL 1 MG/ML INJ ONE (15:49)
[2021-03-18 16:12] VITALS: BP 105/60; TEMP 97.2; O2SAT 99
[2021-03-18] MEDS ORDERED: CODEINE 30MG/APAP 300MG TAB ONE (16:28)
--- NOTE | 2021-03-18 21:30 | OP ---
Date of Procedure: 03/18/2021 Surgeon: Giuliano Cruz MD Preoperative Diagnosis: Infected right lower back subcutaneous mass. Postoperative Diagnosis: Infected right lower back subcutaneous mass. Procedure: Excisional biopsy of infected right lower back subcutaneous mass 3 x [address] oliver. Estimated Blood Loss: Less than 10 mL. Specimen: Mass and abscess culture. Findings: Mass with a deep abscess. Indications: This is a case of a female who comes to us with recurrent infections in the right lower back. The patient had a mass in that region, had it lanced before. Still unable to control that wi th antibiotics and she has been visiting her primary doctor. She was referred to us to have the mass excised. The benefits, alternatives, and risks of excision of a mass fully explained, which include, but not limited to infection, bleeding, damage to adjacent structures, anesthesia complication, recu rrence, [place], and . She also understands this may not relieve the symptoms. She might need more than one surgical intervention. She understood, signed a consent. Description Of Procedure: The area of concern was marked by me and the patient in the holding room. The patient was brought to the operating room, placed in supine position. Anesthesia was done witho ut complication. The patient was placed in lateral decubitus position with proper protection. The r ight lower back was prepped and draped in sterile fashion. An incision was made in a wedge fashion t o remove the mass. When we went deep into the mass, we noticed the patient had an abscess present. Purulent pus content coming out, so we cultured the area and unfortunately we could not close the are a due to the retained infection in that region. So, we obtained hemostasis with local anesthetic and packed the area with wet-to-dry dressing. The patient tolerated the procedure well. The patient was sent to recovery in stable condition. ALEJANDRO/ROSA Voice ID: [id number] Report ID: [id number]
--- NOTE | 2021-03-18 21:33 | DS ---
Date of Discharge: 03/18/2021 Diagnosis: Infected right lower back subcutaneous mass with abscess. Procedure: Excisional biopsy of infected right lower back subcutaneous mass with abscess drainage. Disposition: Home. Activity: As tolerated, no lifting. Condition: Stable. Discharge Plan: Follow in my office in 1 week. Call for appointment [phone]. The patient's advised on how to use wet-to-dry dressing with normal saline. He feels comfortable doing so. So, we prescribed a prescription for normal saline, the antibiotics, and also pain control. ALEJANDRO/ROSA Voice ID: [id number] Report ID: [id number]
== END 2021-03-18 16:50 | disposition home or self-care (01) ==
LOC: OR 09:23
PROVIDERS: ATTEND Surgery
PROC: 0JB70ZZ Excision of Back Subcutaneous Tissue and Fascia, Open Approach (ICD-10-PCS; principal; 2021-03-18 11:15)
DX: L72.0 Epidermal cyst (principal)
CPT/HCPCS: 93005; 87070; 85025; 80048; 36415; 87205; 88304; 87075; 71046; 11403; U0003; J2704; J2550; J2250; J3010 ×2; J1100; J1170 ×2; J7120; J2405 ×2; J0744; 88305

== ENCOUNTER 2023-07-14 11:00 | Day surgery (SDC) | payer BC ==
[2023-07-11 13:48] LABS: Absolute Basophils 0.1 K/uL (0-0.5); Absolute Eosinophils 0.1 K/uL (0-0.5); Absolute Lymphocytes (CBC) 2.3 K/uL (0.7-4.9); Absolute Monocytes 0.3 K/uL (0.1-1.3); Absolute Neutrophil 5.1 K/uL (1.8-8.0); Eosinophils % 1.6 % (0-4.4); Hematocrit 41.5 % (36.0-45.0); Hemoglobin 13.7 g/dL (12.0-15.0); Lymphocytes % 29.5 % (15.3-44.8); MCH 27.2 pg (27.0-35.0); MCV 82.3 fL (80-100); Monocytes % 4.3 % (3.3-12.3); Neutrophils % 63.6 % (41.7-73.7); Nucleated Red Blood Cells % 0.2 % (0-0); Platelets 277 thou/uL (152-406); RBC Red Blood Cell Count 5.04 M/uL (3.86-4.86); Red Cell Distribution Width 12.5 % (12.1-15.2)
[2023-07-11 13:58] LABS: PT Prothrombin Time 10.9 SECONDS (9.5-12.5); Protime INR 0.99
--- NOTE | 2023-07-11 14:09 | RAD REPORT ---
EXAM DESCRIPTION: [facility] Single [facility]07/11/2023 1:41 pm CLINICAL HISTORY: PREOP. Hypertension COMPARISON: Chest Pa And Lat (2 Views) dated 05/20/2022; Chest Pa And Lat (2 Views) dated 03/17/2021; Chest Pa And Lat (2 Views) dated 08/21/2020; Chest Single View dated 08/08/2020 TECHNIQUE: Portable AP view of the chest. FINDINGS: The lungs are clear. No pneumothorax or effusion. The cardiomediastinal contours are unre markable. Linear radiopaque structures adjacent to the lower chest wall on the right, may be extraco rporeal. IMPRESSION: No acute cardiopulmonary process.
[2023-07-11 14:22] LABS: Anion Gap 7.2 mEq/L (5.0-15.0); Potassium 4.2 mEq/L (3.5-5.1)
[2023-07-14] MEDS ORDERED: NA CHLORIDE 0.9% 500 ML ONE (11:28)
[2023-07-14] MEDS ORDERED: HEPA 1000U/500MLS 2,000 UNIT/1,000 ML BAG IV ONE (11:37)
[2023-07-14] MEDS ORDERED: LIDOCAINE 1% 20 ML MDV ONE (11:38)
[2023-07-14] MEDS ORDERED: FENTANYL CITR 100 MCG/2 ML ONE (11:38)
[2023-07-14] MEDS ORDERED: MIDAZOLAM HCL 2 MG/2 ML INJ ONE (11:38)
[2023-07-14] MEDS ORDERED: VERAPAMIL HCL 10 MG/4 ML VIAL IV ONE (11:38)
[2023-07-14] MEDS ORDERED: ATROPINE SULF 1 MG/10 ML SYR IV ONE (11:38)
[2023-07-14] MEDS ORDERED: HEPARIN 10,000 UNIT/10 ML VIAL IV ONE (11:39)
[2023-07-14] MEDS ORDERED: HEPARIN 5000 UNIT/ML 1 ML VIAL ONE (11:39)
[2023-07-14] MEDS ORDERED: NITROGLYCERIN/D5W 50 MG/250 ML BTL IV ONE (11:42)
[2023-07-14] MEDS: MIDAZOLAM HCL 2 MG/2 ML INJ ONE (12:58)
[2023-07-14 13:09] VITALS: TEMP 97.4; O2SAT 100
--- NOTE | 2023-07-14 13:23 | OP ---
Date of Procedure: 07/14/2023 Surgeon: ENRIQUE CARDENAS Procedures Performed: 1.Selective coronary angiogram. 2.Left heart catheterization. Indication: Unstable angina. Access: Right radial artery 6-Venezuelan closed with TR band. Complications: None. Bleeding: Less than 50 mL. Anesthesia: Total sedation time was 30 minutes. Used fentanyl and Versed. Description Of Procedure: After risks, benefits, and alternatives were explained, the patient agreed to procedure and signed informed consent. The patient was brought into cardiac catheterization [facility], prepped and draped in usual sterile fashion. Then, I accessed right radial artery using Nourish atric micropuncture kit, placed 6-Venezuelan Slender sheath and took 5-Venezuelan Allouez 4.0 catheter into the aortic root over a J-wire, engaged the left main. Then in the right coronary artery, took standard views and then catheter was pushed over the wire into the LV, measured the LVEDP. Pullback did not r ecord any gradient. Then I removed the catheter and the sheath, placed TR band with good hemostasis. Findings: 1.Left main; large and normal. 2.LAD; large vessel, normal, and normal diagonal branches. 3.Left circumflex; large and dominant and normal. 4.RCA; small, nondominant and normal. 5.Normal LVEDP between 5 and 10 mmHg. Conclusion: 1.Normal coronary arteries. 2.Normal LVEDP. Recommendation: Medical management. SR/MODL Voice ID: [id number] Report ID: [id number]
[2023-07-14 14:14] VITALS: BP 114/64
== END 2023-07-14 13:50 | disposition home or self-care (01) ==
LOC: CCL 11:00
PROVIDERS: ATTEND Internal Medicine
DX: I20.0 Unstable angina (principal); I47.10 Supraventricular tachycardia, unspecified; E78.2 Mixed hyperlipidemia; Z87.891 Personal history of nicotine dependence; Z79.899 Other long term (current) drug therapy; Z88.0 Allergy status to penicillin; Z82.49 Family history of ischemic heart disease and other diseases of the circulatory system
CPT/HCPCS: 93005; 85025; 80048; 36415; 83721; 85610; 85730; 71045; 93458; 76937; C1893; Q9966; J1644; J2001; J2250 ×2; J3010; J7040; 99152; 99153; J0461

== ENCOUNTER 2023-07-27 16:47 | Emergency (ER) | payer BC ==
--- OUTSIDE RECORDS SUMMARY | 2023-07-27 16:50 | XMS REPORT | Clinical Summary ---
Author Name Unknown Organization [facility] [place] Address [address] [place] [address] Care Team Providers Care Circuit Court Clerk Name Role Phone Rhiannon Moran MD Unavailable Tracy Casillas APRN Primary Care Provid er Allergies Active Allergy Reactions Criticality Noted Date Comments Penicillins Anaphylaxis,Other (S ee Comments) High 09/26/2018 Childhood allergy (throat swollen, hives) Medications Medication Sig Dispensed Refills Start Date End Date Status diphenhydrAMINE (BENADRYL) 25 mg tablet 2 capsule at bedtime as needed 0 Active diazePAM (VALIUM) 10 mg tablet as directed 0 Active ibuprofen (ADVIL,MOTRIN) 400 mg tablet 1 tablet with food or milk as needed 0 Active dyclonine HCl, bulk, 100 % powd 0 Active melatonin 1 mg tab tablet melatonin 0 Active semaglutide (Ozempic) 0.25 mg or 0.5 mg(2 mg/1.5 mL) pnij 0 Active TESTOSTERONE UNDECANOATE ORAL 0 Active doxylamine (Unisom, doxylamine,) 25 mg tablet 1 tablet at bedtime as needed 0 Active ondansetron (ZOFRAN) 4 mg tablet 1 tablet 0 Active aspirin/salicylamide/ caffeine (BC HEADACHE POWDER ORAL) 0 Active butalbital-acetaminop hen-caffeine (FIORICET, ESGIC) 50 mg-325 mg-40 mg tablet butalbital-acetamin ophen-caffeine 50 mg-325 mg-40 mg tablet TAKE ONE (1) TABLET(S) BY MOUTH TWICE A DAY NEEDED. 0 Active vitamin D3-vitamin K2 1,250-200 mcg cap 0 08/17/2021 Active cyanocobalamin-cobama mide 5,000-100 mcg subl 0 08/17/2021 Active estradioL (VIVELLE-DOT) 0.075 mg/24 hr APPLY ONE (1) PATCH(ES) TO THE SKIN TWICE WEEKLY. 0 07/09/2021 Active estradiol (VAGIFEM) 10 mcg vaginal tablet 0 08/23/2021 Act sam estrogens, conjugated,-methylTES TOSTERone (ESTRATEST HS) 0.625 mg-1.25 mg per tablet TAKE ONE (1) TABLET(S) BY MOUTH DAILY FOR 21 DAYS, THEN OFF FOR 1 WEEK, THEN REPEAT. 0 08/05/2021 Active levalbuterol (XOPENEX HFA) 45 mcg/puff inhaler Xopenex HFA 45 mcg/actuation aerosol inhaler Inhale 2 puffs every 6 hours by inhalation route. 0 Active lidocaine (LIDODERM) 5% (700 mg/patch) transdermal patch lidocaine 5 % topical patch APPLY ONE (1) PATCH TO THE SKIN ONCE DAILY (MAY WEAR UP TO 12HOURS.). 0 Active pregabalin (LYRICA) 75 mg capsule TAKE ONE (1) CAPSULE(S) BY MOUTH TWICE A DAY. 0 07/09/2021 Active Active Problems No known active problems Immunizations Name Administration Dates Next Due Influenza, Quadrivalent 03/10/2021,12/27/2019,,12/16/2017 Jatinder SARS-CoV-2 Vaccination 07/01/2020 Tdap 02/03/2018 Surgical History Surgery Date Site/Laterality Comments APPENDECTOMY 2017 EXPLORATORY LAPAROTOMY 2017 OOPHORECTOMY 2016 2019 HYSTERECTOMY 2012 UPPER GASTROINTESTINAL ENDOSCOPY 2021 Medical History Medical History Date Comments Hyperlipidemia 2000 Chronic fatigue syndrome [address] suspects either CFS or Long Covid Allergic rhinitis Swallowing problem 2015 Guessing at t he date Gastric ulcer 2017 Healed Diverticulitis 2017 Irritable bowel syndrome 2010 Polyp of colon 2021 One (1) Removed during colonoscopy History of recurrent urinary tract infection 1989 Sexual dysfunction 2019 After last re maining ovary removed Menopause 2019 After last ovary removed Uterine leiomyoma 2000 Endometriosis 2017 Depressive disorder 2000 Anxiety 1980 Family History Medical History Relation Name Comments Skin cancer Father non-metastatic, simply removed. present on sun-exposed part of body Breast cancer Half-Sister 1 "not detected on mammogram" - ER/[place] pos. has completed chemotherapy with radiation and mastectomy planned Skin cancer Maternal Grandfather unknown type, non-metastatic Alzheimer's disease Maternal Grandmother Nevi Maternal Grandmother Skin cancer Mother Hellen Mcelroy Squamous cell c arcinoma Skin cancer Other 1 spread to brain Stomach cancer Other 2 metastatic Breast cancer Paternal Cousin 1 hormone p ositive,treated with chemotherapy, radiation, bilateral mastectomy Lung cancer Paternal Grandfather Zo Anderson hx of s moking (quit 20 years prior to dx) Relation Name Status Comments Daughter 1 Alive Daughter 2 Alive Father Alive Half-Sister 1 Alive genetic testin g negative, report not reviewed. No KATHERINE/BSO Half-Sister 2 Alive no KATHERINE/BSO Maternal Aunt Alive KATHERINE/BSO follow ing SAB and D&C Maternal Cousin Alive Maternal Grandfather (Age 84-86) [place] in his 70s Maternal Grandmother (Age 72) Maternal Uncle (Age 50s) kidney/ liver failure secondary to history of ETOH Mother Hellen Mcelroy Alive no KATHERINE/BSO Other 1 (Age 62) Other 2 (Age 65) Other 3 Alive Other 4 Alive Other 5 Alive Other 6 Alive Other 7 Alive Other 8 Alive Other 9 Alive Other 10 Alive Other 11 Alive Other 12 Alive Other 13 Alive Paternal Aunt Alive Paternal Cousin 1 Alive negative g enetic testing.KATHERINE/BSO at age 41, took HRT prior to diagnosis. Paternal Cousin 2 Alive Paternal Cousin 3 Alive Paternal Cousin 4 Alive goiter, au toimmune condition Paternal Cousin 5 Alive Paternal Grandfather Zo Anderson (Age 70s) Paternal Grandmother (Age 87) co mplications of diabetes Paternal Uncle (Age 40s) acciden t Son Alive Social History Tobacco Use Types Packs/Day Years Used Date Smoking Tobacco: Former Cigarettes 1 15 Smokeless Tobacco: Never Comments:1999 quit Alcohol Use Standard Drinks/Week Comments Not Currently 0 (1 standard drink = 0.6 oz pur e alcohol) Sex and Gender Information Value Date Recorded Sex Assigned at Female 08/30/2021 8:15 PM CDT Gender Identity Female 08/30/2021 8:15 PM CDT Sexual Orientation Straight 08/30/2021 8: 15 PM CDT Job Start Date Occupation Industry Not on file Not on file Not on file Obstetrics History Para Term AB IAB SAB Ectopic Multiple Livin g Live Births 3 3 3 Date Outcome GA Total Labor Labor/2nd/3rd Weight Sex Delivery Anes PTL Carrie A1 A5 Name Cl in Para Para Para Comments Menarche: 14 years Parity age:18 years Breast fed: no control: (oral): Hormone therapy: 3 years LMP: Bra Size: 40B Plan of Treatment Health Maintenance Due Date Last Done Comments COVID-19 Vaccine (2022-2 4 season) 2022 07/01/2020 Influenza Vaccine 11/27/2023 03/10/2021, , 02/06/2019, Additional history exists Care Teams Circuit Court Clerk Relationship Specialty Start Date End Date Rhiannon Moran MD [address] [place] [address] [id number] PCP - External Referring Obstetrics/Gynecology 06/09/21 Tracy Casillas APRN [address] [place] [address] PCP - General Breast Medical Oncology 06/24/21
[2023-07-27] MEDS ORDERED: ONDANSETRON 4 MG/2 ML VIAL ONE (17:48)
[2023-07-27] MEDS ORDERED: MORPHINE 4 MG/ML SYR ONE (17:48)
[2023-07-27] MEDS ORDERED: NA CHLORIDE 0.9% 1,000 ML ONE (17:48)
[2023-07-27 17:58] LABS: Absolute Eosinophils 0.2 K/uL (0-0.5); Absolute Lymphocytes (CBC) 1.4 K/uL (0.7-4.9); Absolute Monocytes 0.4 K/uL (0.1-1.3); Absolute Neutrophil 5.1 K/uL (1.8-8.0); Basophils % 0.5 % (0-1.3); Hematocrit 39.8 % (36.0-45.0); Hemoglobin 13.9 g/dL (12.0-15.0); Lymphocytes % 19.4 % (15.3-44.8); MCH 28.2 pg (27.0-35.0); MCHC 34.9 g/dL (32.0-36.0); MCV 80.8 fL (80-100); MPV 7.9 fL (7.6-11.3); Monocytes % 6.1 % (3.3-12.3); Nucleated Red Blood Cells % 0.1 % (0-0); Platelets 269 thou/uL (152-406); RBC Red Blood Cell Count 4.93 M/uL (3.86-4.86); Red Cell Distribution Width 12.4 % (12.1-15.2)
[2023-07-27 18:15] LABS: ALT/SGPT 19 U/L (13-56); AST/SGOT 9 U/L (15-37); Albumin 3.8 g/dL (3.4-5.0); Albumin/Globulin Ratio 0.9 (1.1-1.8); Alkaline Phosphatase 96 U/L (45-117); Anion Gap 5.1 mEq/L (5.0-15.0); BUN Blood Urea Nitrogen 8 mg/dL (7-18); Bicarbonate 28 mEq/L (21-32); Bilirubin Total 0.4 mg/dL (0.2-1.0); Globulin 4.1 g/dL (2.3-3.5); Glomerular Filtration Rate 75 ml/min (=/>90); Glucose Level 95 mg/dL (74-106); Lipase 21 U/L (13-75); Potassium 4.1 mEq/L (3.5-5.1); Protein, Total 7.9 g/dL (6.4-8.2); Sodium Level 135 mEq/L (136-145)
[2023-07-27 18:42] LABS: Troponin High Sensitivity < 3.0 pg/mL (<58.9)
[2023-07-27 18:46] LABS: Specific Gravity 1.006 (1.005-1.030); Sqamous Epithelial <5 /HPF (None Seen); Urine Bacteria <20 /HPF (<20); Urine Bilirubin NEGATIVE (Negative); Urine Blood 2+ (Negative); Urine Clarity Turbid (Clear); Urine Color Colorless (Yellow); Urine Culture Reflex Order NOT NEEDED; Urine Glucose NEGATIVE (Negative); Urine Ketones NEGATIVE (Negative); Urine Microscopic Reflex YN ORDER UMIC; Urine Mucus Slight /HPF (None Seen); Urine Nitrite NEGATIVE (Negative); Urine Protein NEGATIVE (Negative); Urine RBC <5 /HPF (None Seen); Urine Urobilinogen Normal (Normal); Urine WBC <5 /HPF (<5)
--- NOTE | 2023-07-27 19:34 | RAD REPORT ---
EXAM DESCRIPTION: CTAbdomen Pelvis W Contrast - 07/27/2023 7:17 pm CLINICAL HISTORY: Abdominal pain. ABD PAIN COMPARISON: Abdomen Pelvis W Contrast dated 01/31/2020; Abdomen Pelvis W Contrast dated 09/06/2018 TECHNIQUE: Biphasic CT imaging of the abdomen and pelvis was performed with 100 ml non-ionic IV cont rast. All CT scans are performed using dose optimization technique as appropriate and may include automated exposure control or mA/KV adjustment according to patient size. FINDINGS: The lung bases are clear. The liver, spleen, pancreas, adrenal glands and kidneys are within normal limits. No bowel obstruction, free air, free fluid or abscess. Sigmoid diverticulosis without diverticulitis. Appendectomy. No evidence of significant lymphadenopathy. No suspicious bony findings. IMPRESSION: No acute intra-abdominal or pelvic finding.
--- NOTE | 2023-07-27 19:42 | ER ---
Nurse's Notes [facility] Name: Sole Mojica Age: 47 yrs Sex: Female : 1975 Arrival Date: 07/27/2023 Time: 16:47 Bed 13 Private MD: Diagnosis: Abdominal pain, Generalized;Nausea with vomiting, unspecified;Irritable bowel syndrome without diarrhea Presentation: 07/26 16:55 Chief complaint: Patient states: nausea on Tuesday , Tuesday diarrhea and vomiting, iw yesterday felt better and she ate something, then started having bad cramps 20 minutes later, has abd cramping wrapping around to back , had normal BM this morning and no relief , has taken dicyclomine and Zofran, has hx of IBS. Coronavirus screen: At this time, the client does not indicate any symptoms associated with coronavirus-19. Ebola Screen: Patient negative for fever greater than or equal to 101.5 degrees Fahrenheit, and additional compatible Ebola Virus Disease symptoms Patient denies exposure to infectious person. Patient denies travel to an Ebola-affected area in the 21 days before illness onset. No symptoms or risks identified at this time. Initial Sepsis Screen: Does the patient meet any 2 criteria? Does the patient have a suspected source of infection? No. Patient's initial sepsis screen is negative. Risk Assessment: Do you want to hurt yourself or someone else? Patient reports no desire to harm self or others. Onset of symptoms was July 24, 2023. 16:55 Method Of Arrival: Ambulatory iw 16:55 Acuity: PRASHANTH 3 iw Historical: - Allergies: 16:58 PENICILLINS; iw - PMHx: 16:58 Endometrosis; diabetes mellitus; graves disease; ibs; mixed connective tissue disorder; iw trigeminal neuralgia; - PSHx: 16:58 Exploratory laparotomy; Appendectomy; endometriosis; ovary mike; hysterectomy; iw - Infectious Disease History:: Denies. - Social history:: Smoking status: Patient denies any tobacco usage or history of. Screenin:23 [facility] ED Fall Risk Assessment (Adult) History of falling in the last 3 months, nj1 including since admission No falls in past 3 months (0 pts) Confusion or Disorientation No (0 pts) Intoxicated or Sedated No (0 pts) Impaired Gait No (0 pts) Mobility Assist Device Used No (0 pt) Altered Elimination No (0 pt) Score/Fall Risk Level 0 - 2 = Low Risk Oriented to surroundings, Maintained a safe environment, Hourly rounding (assess needs \T\ fall precautionary measures) done. Abuse screen: Denies threats or abuse. Denies injuries from another. Nutritional screening: No deficits noted. Tuberculosis screening: No symptoms or risk factors identified. Assessment: 18:10 General: Appears in no apparent distress. uncomfortable, Behavior is calm, cooperative, nj1 appropriate for age. 18:10 Pain: Complains of pain in abdomen Pain currently is 7 out of 10 on a pain scale. nj1 Quality of pain is described as crampy. Neuro: Level of Consciousness is awake, alert, obeys commands, Oriented to person, place, time, situation. Cardiovascular: Patient's skin is warm and dry. Respiratory: Airway is patent Respiratory effort is even, unlabored. GI: Reports upper abdominal pain, bloating, diarrhea, gaseousness, vomiting. 19:18 Reassessment: Not in room, in CT scan. nj1 19:45 Reassessment: Patient appears in no apparent distress at this time. Patient and/or nj1 family updated on plan of care and expected duration. Pain level reassessed. Patient is alert, oriented x 3, equal unlabored respirations, skin warm/dry/pink. Vital Signs: 16:55 BP 142 / 89; Pulse 87; Resp 16; Pulse Ox 100% on R/A; Weight 78.02 kg; Height 5 ft. 6 iw in. ; Pain 10/10; 18:24 Pain 7/10; nj1 19:42 BP 112 / 65; Pulse 75; Resp 16; Pulse Ox 97% ; Pain 5/10; nj1 16:55 Body Mass Index 27.76 (78.02 kg, 167.64 cm) iw 16:55 Pain Scale: Adult iw 18:24 Pain Scale: Adult nj1 19:42 Pain Scale: Adult nj1 ED Course: 16:49 Patient arrived in ED. im 16:50 Bisi Mcdaniel MD is Attending Physician. sd2 16:58 Triage completed. iw 17:16 Lissa Acuña, RN is Primary Nurse. nj1 17:43 Troponin High Sensitivity Sent. mb9 17:43 Lipase Sent. mb9 17:43 CMP Sent. mb9 17:43 CBC with Diff Sent. mb9 17:43 Initial lab(s) drawn, by ks, sent to lab. Inserted saline lock: 22 gauge in right 9 antecubital area, using aseptic technique. Blood collected. 18:01 Urinalysis w/ reflexes Sent. 9 18:22 EKG done, by ED staff, reviewed by Bisi Mcdaniel MD. nj1 18:23 Arm band placed on. nj1 18:24 Patient has correct armband on for positive identification. Bed in low position. Call nj light in reach. Adult w/ patient. Provided Education on: call light, fall precautions. 19:19 CT Abd/Pelvis - IV Contrast Only In Process Unspecified. EDMS 20:06 No provider procedures requiring assistance completed. IV discontinued, intact, nj1 bleeding controlled, Pressure dressing applied. Administered Medications: 17:55 Drug: Ondansetron IVP 4 mg IVP once; over 2 minutes Route: IVP; Site: right antecubital;9 18:24 Follow up: Response: No adverse reaction; Nausea is decreased [facility] 18:01 Drug: morphine IVP or IV 4 mg IVP once over 4 mins Route: IVP; Infused Over: 4 mins; 9 Site: right antecubital; 18:24 Follow up: Pain 7/10 Adult; Response: No adverse reaction; Pain is decreased [facility] 18:01 Drug: NS 0.9% IV 1000 ml IV at 1 bolus Per protocol; 1000 mL bolus Route: IV; Rate: 1 mb9 bolus; Site: right antecubital; 19:00 Follow up: Response: No adverse reaction; IV Status: Completed infusion; IV Intake: nj1 1000ml 19:50 Drug: Acetaminophen-Codeine PO (300 mg-30 mg) 1 tablet PO once; RASS on ADMIN: Combtv4, nj1 Very Agttd3, Agttd2, Rstlss1, AlertClm0, Drwsy-1, Lt Sdtn-2, Mod Sdtn-3, Dp Sdtn-4, UnArsble-5 Route: PO; Medication: 20:00 VIS not applicable for this client. nj1 Intake: 19:00 IV: 1000ml; Total: 1000ml. nj1 Outcome: 19:42 Discharge ordered by . [email or web address] 20:00 Discharged to home ambulatory, nj1 20:00 Condition: stable 20:00 Discharge instructions given to patient, Instructed on discharge instructions, follow up and referral plans. medication usage, Demonstrated understanding of instructions, follow-up care, medications, Prescriptions given X 2, 20:07 Patient left the ED. nj1 Signatures: Dispatcher [employer] EDBrittny Cottrell, RN RN Bisi Mcdaniel MD MD sd2 Christi Huang RN RN mb9 Lissa Acuña RN RN nj1 Kami Chaudhary Corrections: (The following items were deleted from the chart) 16:59 16:55 BP 142 / 89; Pulse 87bpm; Resp 16bpm; Pulse Ox 100% RA; iw iw 19:10 18:58 Report given to Quique BARDALES nj1 nj1 20:00 19:42 Pulse 75bpm; Resp 16bpm; Pulse Ox 97%; nj1 nj1 20:02 19:45 Reassessment: Patient appears in no apparent distress at this time. Patient is nj1 alert, oriented x 3, equal unlabored respirations, skin warm/dry/pink. nj1
--- NOTE | 2023-07-27 19:43 | EDPHYS ---
Physician Documentation [facility] Name: Sole Mojica Age: 47 yrs Sex: Female : 1975 Arrival Date: 07/27/2023 Time: 16:47 Bed 13 Private MD: ED Physician Bisi Mcdaniel HPI: 07/26 19:19 This 47 yrs old Female presents to ER via Ambulatory with complaints of Abdominal Pain, sd2 Back Pain, Nausea/Vomiting. 19:19 47-year-old female with a history of IBS presents with chief complaint of upper sd2 abdominal pain radiating to her back with associated nausea and vomiting that has been ongoing and progressively worsening for the past few days. She reports she initially on Tuesday had nausea only and then felt worse on Tuesday. She reports she felt better yesterday and was able to eat something but about 20 minutes after eating, her pain began to come in waves and has not improved since then. She denies any associated fevers or diarrhea. She has not had any urinary symptoms. She reports having some similar symptoms in the past with IBS flare prior to going on autoimmune medications such as methotrexate and hydroxychloroquine. However, she has been off of these medications since January due to being taken off of them by her type cutter. She reports that her symptoms have slowly been reappearing since then.. Historical: - Allergies: 16:58 PENICILLINS; iw - PMHx: 16:58 Endometrosis; diabetes mellitus; graves disease; ibs; mixed connective tissue disorder; iw trigeminal neuralgia; - PSHx: 16:58 Exploratory laparotomy; Appendectomy; endometriosis; ovary mkie; hysterectomy; iw - Infectious Disease History:: Denies. - Social history:: Smoking status: Patient denies any tobacco usage or history of. ROS: 19:19 Constitutional: Negative for fever, chills, and weight loss, Eyes: Negative for injury, sd2 pain, redness, and discharge, Cardiovascular: Negative for chest pain, palpitations, and edema, Respiratory: Negative for shortness of breath, cough, wheezing. 19:19 : Negative for dysuria, urinary frequency, hesitancy, urgency and hematuria. MS/Extremity: Negative for injury and deformity, Skin: Negative for injury, rash, and discoloration, Neuro: Negative for headache, numbness and tingling. 19:19 Abdomen/GI: Positive for abdominal pain, nausea and vomiting, Negative for diarrhea, Exam: 19:19 Constitutional: This is a well developed, well nourished patient who is awake, alert, sd2 and in no acute distress. Head/Face: Normocephalic, atraumatic. Eyes: EOMI, normal conjunctiva bilaterally Chest/axilla: Normal chest wall appearance and motion. Nontender with no deformity. Cardiovascular: Regular rate and rhythm with a normal S1 and S2. No gallops, murmurs, or rubs. 2+ distal pulses. Respiratory: Lungs have equal breath sounds bilaterally, clear to auscultation and percussion. No rales, rhonchi or wheezes noted. No increased work of breathing, no retractions or nasal flaring. Abdomen/GI: Soft, ND, mild TTP to the upper abdomen at the epigastrum, LUQ, RUQ, negative Gould's sign, no rebound or guarding Skin: Warm, dry with normal turgor. Normal color with no rashes, no lesions, and no evidence of cellulitis. MS/ Extremity: Pulses equal, no cyanosis. Neurovascular intact. Full, normal range of motion. Psych: Awake, alert, with orientation to person, place and time. Behavior, mood, and affect are within normal limits. 19:19 ECG was reviewed by the Attending Physician. NSR, rate 69, no STEMI criteria or sd2 significant ST-T wave changes Vital Signs: 16:55 BP 142 / 89; Pulse 87; Resp 16; Pulse Ox 100% on R/A; Weight 78.02 kg; Height 5 ft. 6 iw in. ; Pain 10/10; 18:24 Pain 7/10; nj1 19:42 BP 112 / 65; Pulse 75; Resp 16; Pulse Ox 97% ; Pain 5/10; nj1 16:55 Body Mass Index 27.76 (78.02 kg, 167.64 cm) iw 16:55 Pain Scale: Adult iw 18:24 Pain Scale: Adult nj1 19:42 Pain Scale: Adult nj1 MDM: 17:10 Patient medically screened. sd2 19:19 Differential diagnosis: Gastritis, cholecystitis, pancreatitis, SBO, diverticulitis, sd2 kidney stone, appendicitis, UTI, dehydration, electrolyte abnormality, IBS flare among others. Data reviewed: vital signs, nurses notes, lab test result(s), EKG, radiologic studies. I considered the following discharge prescriptions or medication management in the emergency department Medications were administered in the Emergency Department. See MAR. Independent interpretation of the following test(s) in the Emergency Department EKG: See my EKG interpretation above. Care significantly affected by the following chronic conditions: Diabetes. 19:40 Historians other than the Patient: Spouse/Significant Other: at bedside. sd2 Counseling: I had a detailed discussion with the patient and/or guardian regarding the historical points, exam findings, and any diagnostic results supporting the discharge/admit diagnosis, lab results, radiology results, the need for outpatient follow up, to return to the emergency department if symptoms worsen or persist or if there are any questions or concerns that arise at home. ED course: Labs and imaging reviewed. labs grossly WNCL. Trop neg. EKg with no ischemic changes. CT with no acute abnormality. Pt feeling much improved at time of repeat evaluation. Comfortable with plan for discharge and outpatient follow up. Verbalizes understanding of discharge plan and strict return precautions. . 07/26 17:27 Order name: CBC with Diff; Complete Time: 18:45 sd2 07/26 17:27 Order name: CMP; Complete Time: 18:45 sd2 07/26 17:27 Order name: Lipase; Complete Time: 18:45 sd2 07/26 17:27 Order name: Troponin High Sensitivity; Complete Time: 18:45 sd2 07/26 17:27 Order name: Urinalysis w/ reflexes; Complete Time: 19:01 sd2 07/26 17:27 Order name: CT Abd/Pelvis - IV Contrast Only; Complete Time: 19:36 sd2 07/26 17:27 Order name: EKG - Nurse/Tech; Complete Time: 18:22 sd2 07/26 17:43 Order name: IV Saline Lock; Complete Time: 17:43 mb9 Administered Medications: 17:55 Drug: Ondansetron IVP 4 mg IVP once; over 2 minutes Route: IVP; Site: right antecubital;mb9 18:24 Follow up: Response: No adverse reaction; Nausea is decreased nj1 18:01 Drug: morphine IVP or IV 4 mg IVP once over 4 mins Route: IVP; Infused Over: 4 mins; mb9 Site: right antecubital; 18:24 Follow up: Pain 7/10 Adult; Response: No adverse reaction; Pain is decreased nj1 18:01 Drug: NS 0.9% IV 1000 ml IV at 1 bolus Per protocol; 1000 mL bolus Route: IV; Rate: 1 mb9 bolus; Site: right antecubital; 19:00 Follow up: Response: No adverse reaction; IV Status: Completed infusion; IV Intake: nj1 1000ml 19:50 Drug: Acetaminophen-Codeine PO (300 mg-30 mg) 1 tablet PO once; RASS on ADMIN: Combtv4, nj1 Very Agttd3, Agttd2, Rstlss1, AlertClm0, Drwsy-1, Lt Sdtn-2, Mod Sdtn-3, Dp Sdtn-4, UnArsble-5 Route: PO; Disposition Summary: 07/27/23 19:42 Discharge Ordered Problem: new sd2 Symptoms: have improved sd2 Condition: Stable sd2 Diagnosis - Abdominal pain, Generalized sd2 - Nausea with vomiting, unspecified sd2 - Irritable bowel syndrome without diarrhea sd2 Followup: sd2 - With: Private Physician - When: 2 - 3 days - Reason: Recheck today's complaints, Continuance of care, Re-evaluation by your physician Discharge Instructions: - Discharge Summary Sheet sd2 - Abdominal Pain, Adult sd2 - Irritable Bowel Syndrome, Adult sd2 - Nausea and Vomiting, Adult sd2 Forms: - Medication Reconciliation Form sd2 - Antibiotic Education sd2 - Prescription Opioid Use sd2 - Patient Portal Instructions sd2 - Leadership Thank You Letter sd2 Prescriptions: - acetaminophen-codeine 300-15 mg Oral tablet - take 1 tablet ORAL route every 6 hours As needed as needed for pain; 12 tablet; sd2 Refills: 0, Product Selection Permitted - ondansetron 8 mg Oral Tablet,disintegrating - take 1 tablet ORAL route every 8 hours As needed; 15 tablet; Refills: 0, sd2 Product Selection Permitted Signatures: Dispatcher [employer] Brittny May, RN JEFFY iw Bisi Mcdaniel MD MD sd2 Christi Huang RN RN mb9 Lissa Acuña RN RN nj1 Corrections: (The following items were deleted from the chart) 17:28 17:28 CBC+H.LAB.BRZ ordered. EDSC EDMS 17:28 17:28 COMPREHENSIVE METABOLIC PANEL+C.LAB.BRZ ordered. EDMS EDMS 17: LIPASE+C.LAB.BRZ ordered. EDMS EDMS 17: Troponin High Sensitivity+C.LAB.BRZ ordered. EDMS EDMS 17:28 Urinalysis+U.LAB.BRZ ordered. EDMS EDMS
[2023-07-27] MEDS ORDERED: CODEINE 30MG/APAP 300MG TAB ONE (19:46)
[2023-07-27 20:33] VITALS: BP 112/65; O2SAT 97
--- NOTE | 2023-07-29 14:41 | EKG ---
Test Date: 2023-07-27 Test Time: 18:18:40 Armature Coil Winder: RENE MEASUREMENT RESULTS: Intervals: Rate: 69 WV: 152 QRSD: 96 QT: 426 QTc: 456 [place]: P: 60 WV: 152 QRS: 85 T: 58 INTERPRETIVE STATEMENTS: Normal sinus rhythm Low voltage QRS Borderline ECG Compared to ECG 07/11/2023 13:26:24 No significant changes Electronically Signed On 07-29-23 14:38:46 CDT by Gabino Myrick
== END 2023-07-27 20:07 | disposition home or self-care (01) ==
LOC: ER 16:47
DX: K58.9 Irritable bowel syndrome, unspecified (principal); R11.2 Nausea with vomiting, unspecified; Z88.0 Allergy status to penicillin
CPT/HCPCS: 85025; 81001; 36415; 84484; 83690; 80053; 74177; Q9967; J2405; J7030; 93005; 96361; 96374; 96375; 99284